=== PATIENT | female | born 1965 | race Hispanic/Latino ===

== ENCOUNTER 2021-08-06 19:15 | Inpatient (IN) | payer OTHER ==
[2021-08-06] MEDS ORDERED: VANCOMYCIN 1,500 MG in SODIUM CHLORIDE 0.9% 500 ML 500 ML IV ONE (20:08)
--- NOTE | 2021-08-06 20:45 | Emergency Department Report ---
HPI - General Chief Complaint: Extremity Injury, Lower Time Seen by Provider: 08/06/21 20:07 - HPI HPI: 55-year-old female with history of hypertension, diabetes mellitus, CKD, hypothyroidism, and history of respiratory failure secondary to Covid pneumonia currently on 2 L of supplemental oxygen by nasal cannula brought in by EMS from her nursing facility due to concern for osteomyelitis of the left heel. The patient states that she has been suffering from decubitus ulcers since she was first hospitalized months ago. She has had bilateral heel ulcers since June and the left heel was not healing as quickly as the right heel and so x-ray was performed today the facility which revealed findings concerning for osteomyelitis. She also reports that over the past few days, her blood sugars have been trending up into the 200s and 300s which is abnormal for her. Other than some mild pain at the site, she denies any other associated symptoms or complaints. She denies any fever/chills, headache, vision change, chest pain, new shortness of breath, cough, abdominal pain, nausea/vomiting, focal weakness, new sensory changes, or any other complaints. She is vaccinated against COVID- 19 but has not yet received a booster. ED Past Medical Hx - Past Medical History Previous Medical History?: Yes Hx Hypertension: Yes Hx Diabetes: Yes Hx Renal Disease: Yes Additional medical history: Respiratory failure on 2L O2 - Surgical History Past Surgical History?: Yes - Family History Family history: diabetes ED Review of Systems ROS: Stated complaint: Other details as noted in HPI Comment: All other systems reviewed and negative Constitutional: denies: chills, fever Eyes: denies: eye pain, vision change ENT: denies: throat pain, congestion Respiratory: shortness of breath (chronic). denies: cough Cardiovascular: denies: chest pain, palpitations Gastrointestinal: denies: abdominal pain, nausea, vomiting Genitourinary: denies: dysuria, frequency Musculoskeletal: denies: arthralgia, myalgia Skin: denies: rash, lesions Neurological: denies: headache, weakness Hematological/Lymphatic: denies: easy bleeding Physical Exam - Physical Exam Vital Signs: Vital Signs 08/06/21 19:38 Temperature 98.3 F Physical Exam: GENERAL: Morbidly obese female in no acute distress. HEAD: Normocephalic. No obvious signs of trauma. ENT: Slightly dry mucous membranes. EYES: Extraocular movements are intact. Pupils are equal round and reactive to light bilaterally NECK: Supple. Full ROM is intact. Trachea is midline. LUNGS: Tachypneic but not in respiratory distress. Equal chest rise bilaterally. Faint end expiratory wheezing. No rales or rhonchi appreciated. CARDIOVASCULAR: Regular rate and rhythm. No murmurs or rubs. VASCULAR: Cap refill < 2 seconds. 2+ pedal pulses bilaterally. 3+ pitting edema of the bilateral lower extremities. ABDOMEN: Abdomen is soft and nondistended. There is no significant tenderness, guarding or rebound. SKIN: Skin is warm and dry NEURO: Patient is awake, alert, and oriented. 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 No focal deficits. Normal motor and sensory exam throughout. Normal speech. MUSCULOSKELETAL: No obvious deformities. No significant tenderness. Normal ROM throughout. Decubitus ulcers noted to the bilateral heels. The left heel decubitus ulcer has a area of necrotic appearing tissue and exudate. No significant surrounding erythema or warmth. ED Course Vital Signs 08/06/21 19:38 Temperature 98.3 F ED Medical Decision Making - Lab Data Result diagrams: 08/06/21 20:19 08/06/21 20:19 Lab Results 08/06/21 08/06/21 08/06/21 Range/Units 20:19 20:19 20:19 WBC 9.3 (4.5-11.0) K/mm3 RBC 3.53 L (3.65-5.03) M/mm3 Hgb 10.0 L (10.1-14.3) gm/dl Hct 31.1 (30.3-42.9) % MCV 88 (79-97) fl MCH 28 (28-32) pg MCHC 32 (30-34) % RDW 18.6 H (13.2-15.2) % Plt Count 383 (140-440) K/mm3 Lymph % (Auto) 22.5 (13.4-35.0) % [place] % (Auto) 9.0 H (0.0-7.3) % Eos % (Auto) 6.0 H (0.0-4.3) % Baso % (Auto) 0.6 (0.0-1.8) % Lymph # (Auto) 2.1 (1.2-5.4) K/mm3 [place] # (Auto) 0.8 (0.0-0.8) K/mm3 Eos # (Auto) 0.6 H (0.0-0.4) K/mm3 Baso # (Auto) 0.1 (0.0-0.1) K/mm3 Seg Neutrophils % 61.9 (40.0-70.0) % Seg Neutrophils # 5.8 (1.8-7.7) K/mm3 ESR 58 (0-20) mm/Hr PT (12.2-14.9) Sec. INR (0.87-1.13) APTT (24.2-36.6) Sec. Sodium 137 (137-145) mmol/L Potassium 4.4 (3.6-5.0) mmol/L Chloride 100.5 (98-107) mmol/L Carbon Dioxide 24 (22-30) mmol/L Anion Gap 17 mmol/L BUN 15 (7-17) mg/dL Creatinine 1.0 (0.6-1.2) mg/dL Estimated GFR 57 ml/min BUN/Creatinine Ratio 15 % Glucose 326 H (65-100) mg/dL Lactic Acid 1.60 (0.7-2.0) mmol/L Calcium 9.2 (8.4-10.2) mg/dL Total Bilirubin 0.30 (0.1-1.2) mg/dL AST 25 (5-40) units/L ALT 23 (7-56) units/L Alkaline Phosphatase 53 (35-129) units/L Troponin T (0.00-0.029) ng/mL NT-Pro-B Natriuret Pep (0-900) pg/mL Total Protein 6.4 (6.3-8.2) g/dL Albumin 3.7 L (3.9-5) g/dL Albumin/Globulin Ratio 1.4 % Triglycerides (2-149) mg/dL Cholesterol (50-199) mg/dL LDL Cholesterol Direct (50-130) mg/dL HDL Cholesterol (40-59) mg/dL Cholesterol/HDL Ratio % HCG, Qual (Negative) 08/06/21 08/06/21 08/06/21 Range/Units 20:19 20:19 20:19 WBC (4.5-11.0) K/mm3 RBC (3.65-5.03) M/mm3 Hgb (10.1-14.3) gm/dl Hct (30.3-42.9) % MCV (79-97) fl MCH (28-32) pg MCHC (30-34) % RDW (13.2-15.2) % Plt Count (140-440) K/mm3 Lymph % (Auto) (13.4-35.0) % [place] % (Auto) (0.0-7.3) % Eos % (Auto) (0.0-4.3) % Baso % (Auto) (0.0-1.8) % Lymph # (Auto) (1.2-5.4) K/mm3 [place] # (Auto) (0.0-0.8) K/mm3 Eos # (Auto) (0.0-0.4) K/mm3 Baso # (Auto) (0.0-0.1) K/mm3 Seg Neutrophils % (40.0-70.0) % Seg Neutrophils # (1.8-7.7) K/mm3 ESR (0-20) mm/Hr PT 13.6 (12.2-14.9) Sec. INR 0.94 (0.87-1.13) APTT 28.6 (24.2-36.6) Sec. Sodium (137-145) mmol/L Potassium (3.6-5.0) mmol/L Chloride (98-107) mmol/L Carbon Dioxide (22-30) mmol/L Anion Gap mmol/L BUN (7-17) mg/dL Creatinine (0.6-1.2) mg/dL Estimated GFR ml/min BUN/Creatinine Ratio % Glucose (65-100) mg/dL Lactic Acid (0.7-2.0) mmol/L Calcium (8.4-10.2) mg/dL Total Bilirubin (0.1-1.2) mg/dL AST (5-40) units/L ALT (7-56) units/L Alkaline Phosphatase (35-129) units/L Troponin T 0.050 H (0.00-0.029) ng/mL NT-Pro-B Natriuret Pep 232.0 (0-900) pg/mL Total Protein (6.3-8.2) g/dL Albumin (3.9-5) g/dL Albumin/Globulin Ratio % Triglycerides 123 (2-149) mg/dL Cholesterol 151 (50-199) mg/dL LDL Cholesterol Direct 78 (50-130) mg/dL HDL Cholesterol 47 (40-59) mg/dL Cholesterol/HDL Ratio 3.21 % HCG, Qual Negative (Negative) - EKG Data -: EKG Interpreted by Me - EKG Data 08/07/21 00:14 Normal sinus rhythm. Normal axis. Normal intervals. No ectopy. Anterior Q waves. No significant ST segment or T wave abnormalities. - Radiology Data Radiology results: report reviewed - Medical Decision Making 55-year-old female with morbid obesity, DM 2, CKD, hypothyroidism, and history of respiratory failure on supplemental oxygen presents due to concern for osteomyelitis of the left heel. Patient has had nonhealing ulcers to the bilateral heels and x-ray today showed findings suggestive of osteomyelitis on the left. Also with several days of elevated blood sugars according to the patient. She is afebrile and with normal vital signs. Physical examination reveals bilateral decubitus ulcers of the heels but on the left there is focus of necrotic appearing tissue and exudate. 2+ pedal pulses bilaterally. We will proceed with full work-up including labs and cultures as well as plain film x- rays of the bilateral heels and feet. Given suspicion for osteomyelitis I will order broad-spectrum vancomycin and Zosyn. Labs have resulted and reveal no significant leukocytosis or anemia. Creatinine is within normal range and there are no significant electrolyte abnormalities. However, glucose is elevated at 326. Troponin is mildly positive at 0.05. BNP is negative. I suspect that the patient is dehydrated and given her hypoxia requiring supplemental oxygen I suspect that this is a type II troponin leak. We will give 1 L of IV fluids and 3 units of IV insulin with repeat Accu-Chek Bilateral plain film x-rays of the heels and feet reveal no acute abnormalities. Given the possibility of osteomyelitis, I feel that only MRI would be appropriate to rule out the diagnosis and therefore I have placed a call to general surgery At 10:15 PM I spoke with Dr. Vincent of surgery regarding the case. She agrees with holding off on CT or any other advanced imaging and recommends admission for IV antibiotics and MRI. She will provide further recommendations in the morning. Chest x-ray shows no acute abnormalities. The results of the diagnostic studies as well as the suspected diagnosis and plan of care were discussed with the patient who expressed understanding and agreement with the plan I spoke with Dr. Fontanez the on-call hospitalist regarding the case and he accepts the patient for admission and will assume care. Critical Care Time: Yes Critical care time in (mins) excluding proc time.: 40 Critical care attestation.: If time is entered above; I have spent that time in minutes in the direct care of this critically ill patient, excluding procedure time. Critical care time was spent in the evaluation/assessment, work-up, and management of osteomyelitis and hyperglycemia requiring broad-spectrum antibiotics, as well as IV insulin and repeat reassessment and reevaluation. ED Disposition Clinical Impression: Osteomyelitis of left foot, Hyperglycemia, Elevated troponin, Chronic respiratory failure Disposition: ADMITTED INPATIENT Is pt being admited?: Yes
--- NOTE | 2021-08-06 20:46 | XRay Report ---
XR chest 1V ap INDICATION / CLINICAL INFORMATION: sepsis COMPARISON: None available. FINDINGS: SUPPORT DEVICES: None. HEART / MEDIASTINUM: No significant abnormality. LUNGS / PLEURA: Lungs are clear. Costophrenic sulci are sharp. No pneumothorax. ADDITIONAL FINDINGS: No significant additional findings. IMPRESSION: 1. No acute findings. Signer Name: Osvaldo Neumann MD Signed: 08/06/2021 8:42 PM Workstation Name: [email or web address]
[2021-08-06 20:51] LABS: Basophils # (Auto) 0.1 K/mm3 (0.0-0.1); Basophils % (Auto) 0.6 % (0.0-1.8); Eosinophils # (Auto) 0.6 K/mm3 (0.0-0.4); Hematocrit 31.1 % (30.3-42.9); Lymphocytes # (Auto) 2.1 K/mm3 (1.2-5.4); Lymphocytes % (Auto) 22.5 % (13.4-35.0); Mean Corpuscular HGB Conc 32 % (30-34); Mean Corpuscular Volume 88 fl (79-97); Monocytes # (Auto) 0.8 K/mm3 (0.0-0.8); Platelet Count 383 K/mm3 (140-440); Red Blood Count 3.53 M/mm3 (3.65-5.03); Red Cell Distribution Width 18.6 % (13.2-15.2)
[2021-08-06] MEDS ORDERED: SODIUM CHLORIDE 0.9% 1000 ML 1,000 ML ONE (21:00)
[2021-08-06 21:08] LABS: INR 0.94 (0.87-1.13)
[2021-08-06 21:09] LABS: Partial Thromboplastin Time 28.6 Sec. (24.2-36.6)
[2021-08-06 21:14] LABS: Albumin 3.7 g/dL (3.9-5); Calcium 9.2 mg/dL (8.4-10.2)
--- NOTE | 2021-08-06 21:39 | XRay Report ---
XR foot BILAT 2V, XR ankle BILAT 3+V INDICATION / CLINICAL INFORMATION: assess for osteo. COMPARISON: None available. FINDINGS: No cortical lysis. No periosteal reaction. No acute fracture. Normal alignment. Joint spaces are pr eserved. Impression: 1. No radiographic evidence of osteomyelitis. Signer Name: Osvaldo Neumann MD Signed: 08/06/2021 9:35 PM Workstation Name: [id number]
[2021-08-06] MEDS ORDERED: SODIUM CHLORIDE 0.9% 500 ML 500 ML IV ONE ×2 (21:42→22:44)
[2021-08-06] MEDS ORDERED: PIPERACIL/TAZOBACTA 4.5/NS 100 4.5 GM/100 ML VIAL IV ONE (22:00)
[2021-08-06 22:02] LABS: Erythrocyte Sedimentation Rate 58 mm/Hr (0-20)
[2021-08-06] MEDS ORDERED: INSULIN REGULAR, HUMAN 100 UNITS/1 ML IV ONE (22:06)
[2021-08-06] MEDS ORDERED: VANCOMYCIN 2,000 MG in SODIUM CHLORIDE 0.9% 500 ML 500 ML IV ONE (23:00)
[2021-08-06] MEDS ORDERED: DEXTROSE 50% IN WATER (25GM) 50 ML SYRINGE IV PRN (23:25)
[2021-08-06] MEDS ORDERED: ONDANSETRON 4 MG/2 ML INJ IV PRN (23:25)
[2021-08-06] MEDS ORDERED: MORPHINE 2 MG/1 ML INJ IV PRN (23:25)
[2021-08-06] MEDS ORDERED: ACETAMINOPHEN 325 MG TAB PO PRN (23:25)
[2021-08-06] MEDS ORDERED: MAGNESIUM HYDROXIDE (MOM) ORAL LIQD UDC PO PRN (23:25)
[2021-08-06] MEDS ORDERED: MORPHINE 4 MG/1 ML INJ IV PRN (23:25)
[2021-08-06] MEDS ORDERED: DEXTROSE 10% *Hypoglycemia IV PRN (23:36)
--- NOTE | 2021-08-06 23:38 | History and Physical Report ---
History of Present Illness Date of examination: 08/06/21 Date of admission: 08/06/2021 Chief complaint: Left heel ulcer History of present illness: 55-year-old female resident of a senior care with significant past medical history of hypertension, diabetes mellitus, hypothyroidism, chronic kidney disease, history of COVID-19 pneumonia with subsequent respiratory failure on 2 L of supplemental oxygen brought in by EMS today for left heel ulcer with concerns for possible osteomyelitis. Patient is known to have bilateral heel ulcers and left heel ulcer does not seem to be healing well and subsequent x-rays done was concerning for possible osteomyelitis. Patient denies any fever or chills, no chest pain or shortness of breath, no nausea vomiting and no abdominal pain. Blood glucose has not been quite controlled lately with numbers ranging in the 200s to 300s. Work-up in the emergency room today, significant findings were that of blood glucose of 326, hemoglobin of 10 and hematocrit of 31.1. Ankle and foot x-rays reveals no radiographic evidence of osteomyelitis. Chest x-ray showed no acute findings. Patient has been commenced on empiric IV antibiotics for possible osteomyelitis. Past History Past Medical History: diabetes, hypertension, renal failure, other (Respiratory failure on 2L O2) Past Surgical History: No surgical history Social history: no significant social history Family history: diabetes Medications and Allergies Allergies Allergy/AdvReac Type Severity Reaction Status Date / Time Iodinated Contrast Media Allergy Swelling Verified 08/06/21 20:56 Active Meds: Active Medications Acetaminophen (Acetaminophen 325 Mg Tab) 650 mg PO Q4H PRN PRN Reason: Pain MILD(1-3)/Fever >100.5/MACKEY Dextrose (Dextrose 50% In Water (25gm) 50 Ml Syringe) 50 ml IV Q30MIN PRN; Protocol PRN Reason: Hypoglycemia Dextrose (Dextrose 50% In Water (25gm) 50 Ml Syringe) 50 ml IV Q30MIN PRN; Protocol PRN Reason: Hypoglycemia Vancomycin HCl 2,000 mg/ (Sodium Chloride) 540 mls @ 250 mls/hr IV ONCE ONE Stop: 08/07/21 01:09 Last Admin: 08/06/21 23:09 Dose: 250 mls/hr Sodium Chloride (Nacl 0.9% 1000 Ml) 1,000 mls @ 125 mls/hr IV DIRECT JAJA Insulin Human Lispro (Insulin Lispro 100 Unit/Ml) 0 unit SUB-Q ACHS JAJA; Protocol Magnesium Hydroxide (Magnesium Hydroxide (Mom) Oral Liqd Udc) 30 ml PO Q4H PRN PRN Reason: Constipation Morphine Sulfate (Morphine 2 Mg/1 Ml Inj) 2 mg IV Q4H PRN PRN Reason: Pain, Moderate (4-6) Morphine Sulfate (Morphine 4 Mg/1 Ml Inj) 4 mg IV Q4H PRN PRN Reason: Pain , Severe (7-10) Ondansetron HCl (Ondansetron 4 Mg/2 Ml Inj) 4 mg IV Q8H PRN PRN Reason: Nausea And Vomiting Sodium Chloride (Sodium Chloride 0.9% 10 Ml Flush Syringe) 10 ml IV BID JAJA Sodium Chloride (Sodium Chloride 0.9% 10 Ml Flush Syringe) 10 ml IV PRN PRN PRN Reason: LINE FLUSH Review of Systems Constitutional: no fever, no chills Ears, nose, mouth and throat: no nasal congestion, no sore throat Cardiovascular: no chest pain, no palpitations Respiratory: no cough, no shortness of breath Gastrointestinal: no abdominal pain, no nausea, no vomiting, no diarrhea Genitourinary Female: no pelvic pain, no flank pain, no dysuria, no hematuria Musculoskeletal: no neck pain, no low back pain Integumentary: no rash, no pruritis Neurological: no headaches, no confusion Psychiatric: no anxiety, no depression Endocrine: no polyphagia, no polydipsia, no polyuria, no nocturia Exam - Constitutional Vitals: Temp Pulse Resp BP Pulse Ox 98.3 F 78 24 148/72 99 08/06/21 19:38 08/06/21 20:58 08/06/21 20:58 08/06/21 20:58 08/06/21 20:58 General appearance: Present: no acute distress, well-nourished, obese - EENT Eyes: Present: PERRL, EOM intact. Absent: scleral icterus ENT: hearing intact, clear oral mucosa, dentition normal - Neck Neck: Present: supple, normal ROM - Respiratory Respiratory effort: normal Respiratory: bilateral: CTA - Cardiovascular Rhythm: regular Heart Sounds: Present: S1 & S2. Absent: gallop, systolic murmur, diastolic murmur, rub, click - Extremities Extremities: no ischemia, pulses intact, pulses symmetrical, No edema, normal temperature, normal color, Full ROM Peripheral Pulses: within normal limits - Abdominal General gastrointestinal: Present: soft, non-tender, non-distended. Absent: mass - Integumentary Integumentary: Present: clear, warm, dry, normal turgor. Absent: rash - Musculoskeletal Musculoskeletal: strength equal bilaterally - Psychiatric Psychiatric: appropriate mood/affect, intact judgment & insight, memory intact, cooperative - Neurologic Neurologic: CNII-XII intact, no focal deficits, moves all extremities - Additional findings Additional findings: Skin: Bilateral heel ulcers. Dressing on heel ulcers. Redness over skin of lower 1/3 of lower extremities. HEART Score - HEART Score Troponin: Troponin T 0.050 ng/mL (0.00-0.029) H 08/06/21 20:19 Results - Labs CBC & Chem 7: 08/06/21 20:19 08/06/21 20:19 Labs: Abnormal lab results 08/06/21 08/06/21 08/06/21 Range/Units 20:19 20:19 20:19 RBC 3.53 L (3.65-5.03) M/mm3 Hgb 10.0 L (10.1-14.3) gm/dl RDW 18.6 H (13.2-15.2) % [place] % (Auto) 9.0 H (0.0-7.3) % Eos % (Auto) 6.0 H (0.0-4.3) % Eos # (Auto) 0.6 H (0.0-0.4) K/mm3 Glucose 326 H (65-100) mg/dL Troponin T 0.050 H (0.00-0.029) ng/mL Albumin 3.7 L (3.9-5) g/dL Assessment and Plan - Patient Problems (1) Osteomyelitis of left foot Current Visit: Yes Status: Acute Plan to address problem: No radiographic evidence of osteomyelitis on x-rays. Meanwhile patient has been commenced on empiric IV antibiotics. May consider MRI of the lower extremities to rule out osteomyelitis. General surgeon Dr. Vincent has been consulted for evaluation and recomme ndations. (2) Chronic respiratory failure Current Visit: Yes Status: Acute Plan to address problem: Patient had a recent coving 19 pneumonia with respiratory failure. Currently on supplemental oxygen. We will keep O2 saturation greater or equal to 92%. (3) Elevated troponin Current Visit: Yes Status: Acute Plan to address problem: Possibly troponin leak. Patient denies any chest pain. (4) Hyperglycemia Current Visit: Yes Status: Acute Plan to address problem: Patient placed on sliding scale insulin. We will monitor Accu-Cheks closely. (5) Morbid obesity with BMI of 50.0-59.9, adult Current Visit: Yes Status: Acute Plan to address problem: Dietary consult requested. Lifestyle modification encouraged. (6) DVT prophylaxis Current Visit: Yes Status: Acute Plan to address problem: Patient placed on subcutaneous heparin. (7) Full code status Current Visit: Yes Status: Acute Plan to address problem: Patient is full code.
[2021-08-06] MEDS ORDERED: VANCOMYCIN PHARMACY TO DOSE IV SCH (23:45)
[2021-08-06 23:49] LABS: Chol/HDL Ratio 3.21 %
[2021-08-07 02:46] LABS: Bacteria,Urine 1+ /HPF (Negative); Bilirubin,Urine NEG (Negative); Blood,Urine NEG (Negative); Color,Urine Yellow (Yellow); Protein,Urine <15 mg/dL mg/dL (Negative); Urobilinogen,Urine < 2.0 mg/dL (<2.0)
[2021-08-07 05:10] LABS: Hematocrit 30.2 % (30.3-42.9); Hemoglobin 9.3 gm/dl (10.1-14.3); Mean Corpuscular HGB Conc 31 % (30-34); Mean Corpuscular Volume 88 fl (79-97); Red Blood Count 3.44 M/mm3 (3.65-5.03); Red Cell Distribution Width 18.7 % (13.2-15.2)
[2021-08-07 05:11] LABS: Platelet Count 351 K/mm3 (140-440)
[2021-08-07 05:31] LABS: BUN/Creatinine Ratio 16; Blood Urea Nitrogen 14 mg/dL (7-17); Calcium 8.7 mg/dL (8.4-10.2); Hemolysis Index 4
[2021-08-07 05:44] LABS: Band Neutrophils # (Manual) 0.3 K/mm3; Basophils % (Manual) 0 % (0.0-1.8); Hypochromasia 1+; Platelet Estimate Consistent w Auto; Total Cells Counted 100
[2021-08-07] MEDS ORDERED: PIPERACIL/TAZOBACTA 4.5/NS 100 4.5 GM/100 ML VIAL IV SCH (06:00)
[2021-08-07] MEDS: HEPARIN 5,000 UNIT/1 ML VIAL SUB-Q SCH ×3 (06:13→21:45)
[2021-08-07] MEDS: INSULIN LISPRO 100 UNIT/ML SUB-Q SCH ×4 (09:09→22:13)
--- NOTE | 2021-08-07 11:54 | Progress Note ---
Assessment and Plan - Patient Problems (1) Osteomyelitis of left foot Current Visit: Yes Status: Acute Plan to address problem: IV Unasyn and vancomycin MRI of the left foot pending (2) Chronic respiratory failure Current Visit: Yes Status: Acute Plan to address problem: Patient had a recent coving 19 pneumonia with respiratory failure. Currently on supplemental oxygen. We will keep O2 saturation greater or equal to 92%. (3) Elevated troponin Current Visit: Yes Status: Acute Plan to address problem: Possibly troponin leak. Patient denies any chest pain. (4) Hyperglycemia Current Visit: Yes Status: Acute Plan to address problem: Insulin adjusted (5) Morbid obesity with BMI of 50.0-59.9, adult Current Visit: Yes Status: Acute Plan to address problem: Dietary consult requested. Lifestyle modification encouraged. (6) DVT prophylaxis Current Visit: Yes Status: Acute Plan to address problem: Patient placed on subcutaneous heparin. (7) Full code status Current Visit: Yes Status: Acute Plan to address problem: Patient is full code. Subjective Date of service: 08/07/21 Principal diagnosis: Left heel osteomyelitis Interval history: 55-year-old female resident of a skilled nursing with significant past medical history of hypertension, diabetes mellitus, hypothyroidism, chronic kidney disease, history of COVID-19 pneumonia with subsequent respiratory failure on 2 L of supplemental oxygen brought in by EMS today for left heel ulcer with concerns for possible osteomyelitis. Patient is known to have bilateral heel ulcers and left heel ulcer does not seem to be healing well and subsequent x-rays done was concerning for possible osteomyelitis. Patient denies any fever or chills, no chest pain or shortness of breath, no nausea vomiting and no abdominal pain. Blood glucose has not been quite controlled lately with numbers ranging in the 200s to 300s. Work-up in the emergency room today, significant findings were that of blood glucose of 326, hemoglobin of 10 and hematocrit of 31.1. Ankle and foot x-rays reveals no radiographic evidence of osteomyelitis. Chest x-ray showed no acute findings. Patient has been commenced on empiric IV antibiotics for possible osteomyelitis. August 07, 2021 Continue IV antibiotics MRI pending Objective - Constitutional Vitals: Vital Signs - 12hr 08/07/21 08/07/21 08/07/21 00:01 00:15 00:31 Pulse Rate 64 67 69 Respiratory 23 24 12 Rate Blood Pressure 130/62 134/41 136/34 O2 Sat by Pulse 99 99 100 Oximetry 08/07/21 08/07/21 08/07/21 00:41 00:51 01:01 Pulse Rate 68 59 L 64 Respiratory 24 21 20 Rate Blood Pressure 136/34 138/47 126/39 O2 Sat by Pulse 99 100 100 Oximetry 08/07/21 08/07/21 08/07/21 01:11 01:21 01:31 Pulse Rate 72 69 60 Respiratory 22 21 21 Rate Blood Pressure 126/39 126/39 126/39 O2 Sat by Pulse 100 100 100 Oximetry 08/07/21 08/07/21 08/07/21 01:41 01:51 01:59 Pulse Rate 72 71 Respiratory 27 H 24 20 Rate Blood Pressure 126/39 126/39 O2 Sat by Pulse 99 100 98 Oximetry 08/07/21 08/07/21 08/07/21 02:01 02:11 02:21 Pulse Rate 63 64 74 Respiratory 19 20 21 Rate Blood Pressure 106/29 106/29 106/29 O2 Sat by Pulse 100 100 100 Oximetry 08/07/21 08/07/21 08/07/21 02:30 04:53 05:01 Pulse Rate Respiratory Rate Blood Pressure 106/29 139/71 135/72 O2 Sat by Pulse 99 71 L 100 Oximetry 08/07/21 08/07/21 08/07/21 05:11 05:21 06:53 Pulse Rate Respiratory Rate Blood Pressure 135/72 135/72 O2 Sat by Pulse 98 99 98 Oximetry 08/07/21 07:01 Pulse Rate Respiratory Rate Blood Pressure O2 Sat by Pulse 98 Oximetry General appearance: Present: no acute distress, well-nourished - EENT Eyes: PERRL, EOM intact ENT: hearing intact, clear oral mucosa Ears: bilateral: normal - Neck Neck: supple, normal ROM - Respiratory Respiratory effort: normal Respiratory: bilateral: CTA - Breasts Breasts: normal - Cardiovascular Heart rate: 78 Rhythm: regular Heart Sounds: Present: S1 & S2. Absent: gallop, rub Extremities: pulses intact, No edema, normal color, Full ROM, abnormal (Left heel ulcer) Extremity abnormal: other - Gastrointestinal General gastrointestinal: Present: soft, non-tender, non-distended, normal bowel sounds - Genitourinary Female genitourinary: normal - Integumentary Integumentary: clear, warm, dry - Musculoskeletal Musculoskeletal: 1, strength equal bilaterally - Neurologic Neurologic: moves all extremities - Psychiatric Psychiatric: memory intact, appropriate mood/affect, intact judgment & insight - Labs CBC & Chem 7: 08/07/21 04:25 08/07/21 04:25 Labs: Abnormal lab results 08/06/21 08/06/21 08/06/21 Range/Units 20:19 20:19 20:19 WBC (4.5-11.0) K/mm3 RBC 3.53 L (3.65-5.03) M/mm3 Hgb 10.0 L (10.1-14.3) gm/dl Hct (30.3-42.9) % MCH (28-32) pg RDW 18.6 H (13.2-15.2) % [place] % (Auto) 9.0 H (0.0-7.3) % Eos % (Auto) 6.0 H (0.0-4.3) % Eos # (Auto) 0.6 H (0.0-0.4) K/mm3 Eosinophils % (Manual) (0.0-4.3) % Eosinophils # (Manual) (0.0-0.4) K/mm3 Glucose 326 H (65-100) mg/dL POC Glucose (70-105) mg/dL Troponin T 0.050 H (0.00-0.029) ng/mL Albumin 3.7 L (3.9-5) g/dL 08/07/21 08/07/21 08/07/21 Range/Units 00:57 04:25 04:25 WBC 11.1 H (4.5-11.0) K/mm3 RBC 3.44 L (3.65-5.03) M/mm3 Hgb 9.3 L (10.1-14.3) gm/dl Hct 30.2 L (30.3-42.9) % MCH 27 L (28-32) pg RDW 18.7 H (13.2-15.2) % [place] % (Auto) (0.0-7.3) % Eos % (Auto) (0.0-4.3) % Eos # (Auto) (0.0-0.4) K/mm3 Eosinophils % (Manual) 7.0 H (0.0-4.3) % Eosinophils # (Manual) 0.8 H (0.0-0.4) K/mm3 Glucose 207 H (65-100) mg/dL POC Glucose 247 H (70-105) mg/dL Troponin T (0.00-0.029) ng/mL Albumin (3.9-5) g/dL 08/07/21 Range/Units 11:15 WBC (4.5-11.0) K/mm3 RBC (3.65-5.03) M/mm3 Hgb (10.1-14.3) gm/dl Hct (30.3-42.9) % MCH (28-32) pg RDW (13.2-15.2) % [place] % (Auto) (0.0-7.3) % Eos % (Auto) (0.0-4.3) % Eos # (Auto) (0.0-0.4) K/mm3 Eosinophils % (Manual) (0.0-4.3) % Eosinophils # (Manual) (0.0-0.4) K/mm3 Glucose (65-100) mg/dL POC Glucose 202 H (70-105) mg/dL Troponin T (0.00-0.029) ng/mL Albumin (3.9-5) g/dL HEART Score - HEART Score Troponin: Troponin T 0.050 ng/mL (0.00-0.029) H 08/06/21 20:19
[2021-08-07] MEDS: VANCOMYCIN 2,000 MG in SODIUM CHLORIDE 0.9% 500 ML 500 ML IV SCH ×2 (13:07→21:45)
[2021-08-07] MEDS ORDERED: CEFEPIME/NS 2 GM/100 ML 2 GM/100 ML BAG IV SCH (14:00)
--- NOTE | 2021-08-07 16:10 | Consultation ---
History of Present Illness Consult date: 08/07/21 Chief complaint: wounds - History of present illness History of present illness: 55 yo F with morbid obesity, HTN, DM, CKD who presents to ER from [place] for possible osteomyelitis of left heel. Patient was hispitalized with covid a few months ago and developed decubitus ulcers. An outpatient xray of the left heel was performed which showed possible osteo. No f/c, cp, sob, n/v, abd pain. Elevated blood sugars. Past History Past Medical History: diabetes, hypertension, renal failure, other (Respiratory failure on 2L O2) Past Surgical History: No surgical history Social history: no significant social history Family history: diabetes Medications and Allergies Allergies Allergy/AdvReac Type Severity Reaction Status Date / Time Iodinated Contrast Media Allergy Swelling Verified 08/06/21 20:56 Active Meds: Active Medications Acetaminophen (Acetaminophen 325 Mg Tab) 650 mg PO Q4H PRN PRN Reason: Pain MILD(1-3)/Fever >100.5/MACKEY Dextrose (Dextrose 10% *Hypoglycemia) 0 ml IV DIRECT PRN; Protocol PRN Reason: Hypoglycemia Heparin Sodium (Porcine) (Heparin 5,000 Unit/1 Ml Vial) 5,000 unit SUB-Q Q8HR JAJA Last Admin: 08/07/21 06:13 Dose: 5,000 unit Sodium Chloride (Nacl 0.9% 1000 Ml) 1,000 mls @ 125 mls/hr IV DIRECT JAJA Vancomycin HCl 2,000 mg/ (Sodium Chloride) 540 mls @ 250 mls/hr IV Q12H JAJA Last Admin: 08/07/21 13:07 Dose: 250 mls/hr Insulin Human Lispro (Insulin Lispro 100 Unit/Ml) 0 unit SUB-Q ACHS JAJA; Pr otocol Last Admin: 08/07/21 13:07 Dose: 4 unit Magnesium Hydroxide (Magnesium Hydroxide (Mom) Oral Liqd Udc) 30 ml PO Q4H PRN PRN Reason: Constipation Morphine Sulfate (Morphine 2 Mg/1 Ml Inj) 2 mg IV Q4H PRN PRN Reason: Pain, Moderate (4-6) Morphine Sulfate (Morphine 4 Mg/1 Ml Inj) 4 mg IV Q4H PRN PRN Reason: Pain , Severe (7-10) Ondansetron HCl (Ondansetron 4 Mg/2 Ml Inj) 4 mg IV Q8H PRN PRN Reason: Nausea And Vomiting Sodium Chloride (Sodium Chloride 0.9% 10 Ml Flush Syringe) 10 ml IV BID JAJA Last Admin: 08/07/21 13:08 Dose: 10 ml Sodium Chloride (Sodium Chloride 0.9% 10 Ml Flush Syringe) 10 ml IV PRN PRN PRN Reason: LINE FLUSH Review of Systems All systems: negative (10 pt ros performed and negative except for that listed in HPI) Exam Vital Signs Temp 98.3 F 08/06/21 19:38 Narrative exam: Gen; Sleeping soundly. No apparent distress ENT: no LAD CV: S1, S2+ Resp; even and unlabored Ext: wounds wrapped, dressings c/d/i Wound photos reviewed: Ext: L heel with necrotic skin present over small portion of wound. No erythema. Remainder of wound with pink granulation tissue. R heel with dry skin without open wound Sacrum: Small clean wound with red granulation tissue without erythema, drainage. Results - Labs 08/07/21 04:25 08/07/21 04:25 Abnormal lab results 08/06/21 08/06/21 08/06/21 Range/Units 20:19 20:19 20:19 WBC (4.5-11.0) K/mm3 RBC 3.53 L (3.65-5.03) M/mm3 Hgb 10.0 L (10.1-14.3) gm/dl Hct (30.3-42.9) % MCH (28-32) pg RDW 18.6 H (13.2-15.2) % [place] % (Auto) 9.0 H (0.0-7.3) % Eos % (Auto) 6.0 H (0.0-4.3) % Eos # (Auto) 0.6 H (0.0-0.4) K/mm3 Eosinophils % (Manual) (0.0-4.3) % Eosinophils # (Manual) (0.0-0.4) K/mm3 Glucose 326 H (65-100) mg/dL POC Glucose (70-105) mg/dL Troponin T 0.050 H (0.00-0.029) ng/mL Albumin 3.7 L (3.9-5) g/dL 08/07/21 08/07/21 08/07/21 Range/Units 00:57 04:25 04:25 WBC 11.1 H (4.5-11.0) K/mm3 RBC 3.44 L (3.65-5.03) M/mm3 Hgb 9.3 L (10.1-14.3) gm/dl Hct 30.2 L (30.3-42.9) % MCH 27 L (28-32) pg RDW 18.7 H (13.2-15.2) % [place] % (Auto) (0.0-7.3) % Eos % (Auto) (0.0-4.3) % Eos # (Auto) (0.0-0.4) K/mm3 Eosinophils % (Manual) 7.0 H (0.0-4.3) % Eosinophils # (Manual) 0.8 H (0.0-0.4) K/mm3 Glucose 207 H (65-100) mg/dL POC Glucose 247 H (70-105) mg/dL Troponin T (0.00-0.029) ng/mL Albumin (3.9-5) g/dL 08/07/21 Range/Units 11:15 WBC (4.5-11.0) K/mm3 RBC (3.65-5.03) M/mm3 Hgb (10.1-14.3) gm/dl Hct (30.3-42.9) % MCH (28-32) pg RDW (13.2-15.2) % [place] % (Auto) (0.0-7.3) % Eos % (Auto) (0.0-4.3) % Eos # (Auto) (0.0-0.4) K/mm3 Eosinophils % (Manual) (0.0-4.3) % Eosinophils # (Manual) (0.0-0.4) K/mm3 Glucose (65-100) mg/dL POC Glucose 202 H (70-105) mg/dL Troponin T (0.00-0.029) ng/mL Albumin (3.9-5) g/dL Diabetes panel 08/06/21 08/06/21 08/07/21 Range/Units 20:19 20:19 04:25 Sodium 137 139 (137-145) mmol/L Potassium 4.4 4.2 (3.6-5.0) mmol/L Chloride 100.5 104.0 (98-107) mmol/L Carbon Dioxide 24 23 (22-30) mmol/L BUN 15 14 (7-17) mg/dL Creatinine 1.0 0.9 (0.6-1.2) mg/dL Glucose 326 H 207 H (65-100) mg/dL Calcium 9.2 8.7 (8.4-10.2) mg/dL AST 25 (5-40) units/L ALT 23 (7-56) units/L Alkaline Phosphatase 53 (35-129) units/L Total Protein 6.4 (6.3-8.2) g/dL Albumin 3.7 L (3.9-5) g/dL Triglycerides 123 (2-149) mg/dL HDL Cholesterol 47 (40-59) mg/dL Calcium panel 08/06/21 08/07/21 Range/Units 20:19 04:25 Calcium 9.2 8.7 (8.4-10.2) mg/dL Albumin 3.7 L (3.9-5) g/dL Pituitary panel 08/06/21 08/07/21 Range/Units 20:19 04:25 Sodium 137 139 (137-145) mmol/L Potassium 4.4 4.2 (3.6-5.0) mmol/L Chloride 100.5 104.0 (98-107) mmol/L Carbon Dioxide 24 23 (22-30) mmol/L BUN 15 14 (7-17) mg/dL Creatinine 1.0 0.9 (0.6-1.2) mg/dL Glucose 326 H 207 H (65-100) mg/dL Calcium 9.2 8.7 (8.4-10.2) mg/dL Adrenal panel 08/06/21 08/07/21 Range/Units 20:19 04:25 Sodium 137 139 (137-145) mmol/L Potassium 4.4 4.2 (3.6-5.0) mmol/L Chloride 100.5 104.0 (98-107) mmol/L Carbon Dioxide 24 23 (22-30) mmol/L BUN 15 14 (7-17) mg/dL Creatinine 1.0 0.9 (0.6-1.2) mg/dL Glucose 326 H 207 H (65-100) mg/dL Calcium 9.2 8.7 (8.4-10.2) mg/dL Total Bilirubin 0.30 (0.1-1.2) mg/dL AST 25 (5-40) units/L ALT 23 (7-56) units/L Alkaline Phosphatase 53 (35-129) units/L Total Protein 6.4 (6.3-8.2) g/dL Albumin 3.7 L (3.9-5) g/dL - Imaging Additional studies: xray L foot Assessment and Plan 55 yo F with left heel wound, r/o osteomyelitis Plan: 1. MRI L heel pending - further recs pending results 2. empiric abx started 3. wound care - orders placed 4. offloading 5. optimize nutrition 6. HbA1C ordered 7. strict glucose control Thank you, please call with questions.
[2021-08-08] MEDS: HEPARIN 5,000 UNIT/1 ML VIAL SUB-Q SCH ×3 (06:25→21:42)
[2021-08-08] MEDS: INSULIN LISPRO 100 UNIT/ML SUB-Q SCH ×4 (08:33→22:31)
[2021-08-08] MEDS: AMPICILLIN/SULBACTA 3GM/100ML 3 GM/100 ML BAG IV SCH ×3 (10:00→21:38)
[2021-08-08] MEDS: VANCOMYCIN 2,000 MG in SODIUM CHLORIDE 0.9% 500 ML 500 ML IV SCH (12:09)
--- NOTE | 2021-08-08 14:28 | Electrocardiograph Report ---
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
--- NOTE | 2021-08-08 14:55 | Progress Note ---
Assessment and Plan - Patient Problems (1) Osteomyelitis of left foot Current Visit: Yes Status: Acute Plan to address problem: IV Unasyn and vancomycin MRI of the left foot pending (2) Chronic respiratory failure Current Visit: Yes Status: Acute Plan to address problem: Patient had a recent coving 19 pneumonia with respiratory failure. Currently on supplemental oxygen. We will keep O2 saturation greater or equal to 92%. (3) Elevated troponin Current Visit: Yes Status: Acute Plan to address problem: Possibly troponin leak. Patient denies any chest pain. (4) Hyperglycemia Current Visit: Yes Status: Acute Plan to address problem: Insulin adjusted (5) Morbid obesity with BMI of 50.0-59.9, adult Current Visit: Yes Status: Acute Plan to address problem: Dietary consult requested. Lifestyle modification encouraged. (6) DVT prophylaxis Current Visit: Yes Status: Acute Plan to address problem: Patient placed on subcutaneous heparin. (7) Full code status Current Visit: Yes Status: Acute Plan to address problem: Patient is full code. Subjective Date of service: 08/08/21 Principal diagnosis: Left heel osteomyelitis Interval history: 55-year-old female resident of a assisted with significant past medical history of hypertension, diabetes mellitus, hypothyroidism, chronic kidney disease, history of COVID-19 pneumonia with subsequent respiratory failure on 2 L of supplemental oxygen brought in by EMS today for left heel ulcer with concerns for possible osteomyelitis. Patient is known to have bilateral heel ulcers and left heel ulcer does not seem to be healing well and subsequent x-rays done was concerning for possible osteomyelitis. Patient denies any fever or chills, no chest pain or shortness of breath, no nausea vomiting and no abdominal pain. Blood glucose has not been quite controlled lately with numbers ranging in the 200s to 300s. Work-up in the emergency room today, significant findings were that of blood glucose of 326, hemoglobin of 10 and hematocrit of 31.1. Ankle and foot x-rays reveals no radiographic evidence of osteomyelitis. Chest x-ray showed no acute findings. Patient has been commenced on empiric IV antibiotics for possible osteomyelitis. August 07, 2021 Continue IV antibiotics MRI pending August 08, 2021 Patient is alert and oriented Lying in bed comfortably and looking at her phone Continue IV antibiotics MRI of the left foot pending Objective - Constitutional Vitals: Vital Signs - 12hr 08/08/21 08/08/21 05:53 11:23 Temperature 97.8 F 98.4 F Pulse Rate 70 68 Respiratory 20 24 Rate Blood Pressure 157/45 154/56 O2 Sat by Pulse 97 94 Oximetry General appearance: Present: no acute distress, well-nourished - EENT Eyes: PERRL, EOM intact ENT: hearing intact, clear oral mucosa Ears: bilateral: normal - Neck Neck: supple, normal ROM - Respiratory Respiratory effort: normal Respiratory: bilateral: CTA - Breasts Breasts: normal - Cardiovascular Heart rate: 78 Rhythm: regular Heart Sounds: Present: S1 & S2. Absent: gallop, rub Extremities: no ischemia, pulses intact, No edema, normal color, Full ROM, abnormal (Left heel ulcer) Extremity abnormal: other (Left heel ulcer) - Gastrointestinal General gastrointestinal: Present: soft, non-tender, non-distended, normal bowel sounds - Genitourinary Female genitourinary: normal - Integumentary Integumentary: clear, warm, dry - Musculoskeletal Musculoskeletal: 1, strength equal bilaterally - Neurologic Neurologic: moves all extremities - Psychiatric Psychiatric: memory intact, appropriate mood/affect, intact judgment & insight - Labs CBC & Chem 7: 08/07/21 04:25 08/07/21 04:25 Labs: Abnormal lab results 08/07/21 08/07/21 08/08/21 Range/Units 16:39 22:05 04:45 POC Glucose 167 H 247 H (70-105) mg/dL Hemoglobin A1c 6.3 H (4-6) % Vancomycin Trough (5.0-20.0) ug/mL 08/08/21 08/08/21 Range/Units 09:29 11:21 POC Glucose 204 H (70-105) mg/dL Hemoglobin A1c (4-6) % Vancomycin Trough 35.7 H (5.0-20.0) ug/mL HEART Score - HEART Score Troponin: Troponin T 0.050 ng/mL (0.00-0.029) H 08/06/21 20:19
[2021-08-09] MEDS: AMPICILLIN/SULBACTA 3GM/100ML 3 GM/100 ML BAG IV SCH ×3 (04:26→18:00)
[2021-08-09] MEDS: HEPARIN 5,000 UNIT/1 ML VIAL SUB-Q SCH ×3 (05:47→22:18)
[2021-08-09 05:59] LABS: Basophils # (Auto) 0.1 K/mm3 (0.0-0.1); Eosinophils # (Auto) 0.6 K/mm3 (0.0-0.4); Eosinophils % (Auto) 7.7 % (0.0-4.3); Hematocrit 30.8 % (30.3-42.9); Hemoglobin 9.9 gm/dl (10.1-14.3); Lymphocytes % (Auto) 25.3 % (13.4-35.0); Mean Corpuscular HGB Conc 32 % (30-34); Mean Corpuscular Volume 89 fl (79-97); Monocytes # (Auto) 0.8 K/mm3 (0.0-0.8); Monocytes % (Auto) 9.4 % (0.0-7.3); Platelet Count 397 K/mm3 (140-440); Red Blood Count 3.46 M/mm3 (3.65-5.03); Red Cell Distribution Width 17.9 % (13.2-15.2)
[2021-08-09 06:25] LABS: BUN/Creatinine Ratio 16; Blood Urea Nitrogen 14 mg/dL (7-17); Calcium 9.4 mg/dL (8.4-10.2); Hemolysis Index 1
[2021-08-09] MEDS: INSULIN LISPRO 100 UNIT/ML SUB-Q SCH ×4 (08:30→22:16)
--- NOTE | 2021-08-09 12:40 | Magnetic Resonance Report ---
MRI LEFT FOOT WITHOUT CONTRAST INDICATION / CLINICAL INFORMATION: osteomyelitis left foot, HEEL PAIN. TECHNIQUE: Multiplanar, multisequence MR images were obtained. COMPARISON: Radiographs dated 08/06/2021 FINDINGS: BONES: No significant bone marrow edema. No fracture. No osseous lesion. JOINTS: No significant arthritis. No significant joint effusion or synovitis. MUSCLES: Mild intramuscular edema in the flexor muscles of the foot. FLEXOR TENDONS: No significant abnormality. EXTENSOR TENDONS: No significant abnormality. PERONEAL TENDONS: No significant abnormality. LIGAMENTS: No significant abnormality. SOFT TISSUES: Dorsal subcutaneous edema. Superficial soft tissue ulcer posterior heel with mild subcu taneous edema. No extension to the bone. ADDITIONAL FINDINGS: Severe tendinosis of distal Achilles tendon with degenerative enthesopathy. Thic kening of plantar fascia with degenerative enthesopathy. Complete fatty atrophy of abductor digiti mi nimi/quinti. IMPRESSION: 1. No MR evidence of osteomyelitis. Superficial soft tissue ulcer at posterior heel with subcutaneous edema but no connection to the bone. 2. Achilles tendinosis. 3. Quinn's neuropathy Report dictated by: Jarad Fitzgerald MD Report dictated on: 08/09/2021 10:53 AM I have reviewed the images, agree with this report, and edited this report as needed. Signer Name: Luis King MD Signed: 08/09/2021 12:36 PM Workstation Name: [id number]
--- NOTE | 2021-08-09 12:58 | Progress Note ---
Assessment and Plan 55 yo F with left heel wound, r/o osteomyelitis MRI left heel - superficial ulcer. No osteo Plan: 1. daily wound care - orders placed 2. offloading 3. optimize nutrition 4. strict glucose control 5. May be discharged from surgical standpoint. No acute intervention. Patient states she has wound care visits 3 x per week. Thank you, please call with questions. Subjective Date of service: 08/09/21 Narrative: Pt seen and examined. No complaints. Objective Vital Signs - 12hr 08/09/21 08/09/21 01:00 04:37 Temperature 97.6 F Pulse Rate 66 Respiratory 18 Rate Blood Pressure 148/63 O2 Sat by Pulse 96 98 Oximetry - General physical appearance Narrative Exam: Gen.: Awake, alert, oriented x3. No apparent distress ENT: Trachea midline. No lymphadenopathy. No scleral icterus or conjunctival pallor CV: S1, S2 present Respiratory: No audible wheezes Extremities: No clubbing, cyanosis, edema. L heel wound with necrotic tissue hanging from wound bed, easily removed. Wound bed is pink with granulation tissue present. Alginate applied to wound bed and covered with foam dressing. - Labs 08/09/21 04:58 08/09/21 04:58 Diabetes panel 08/09/21 Range/Units 04:58 Sodium 140 (137-145) mmol/L Potassium 4.1 (3.6-5.0) mmol/L Chloride 103.2 (98-107) mmol/L Carbon Dioxide 26 (22-30) mmol/L BUN 14 (7-17) mg/dL Creatinine 0.9 (0.6-1.2) mg/dL Glucose 155 H (65-100) mg/dL Calcium 9.4 (8.4-10.2) mg/dL Calcium panel 08/09/21 Range/Units 04:58 Calcium 9.4 (8.4-10.2) mg/dL Pituitary panel 08/09/21 Range/Units 04:58 Sodium 140 (137-145) mmol/L Potassium 4.1 (3.6-5.0) mmol/L Chloride 103.2 (98-107) mmol/L Carbon Dioxide 26 (22-30) mmol/L BUN 14 (7-17) mg/dL Creatinine 0.9 (0.6-1.2) mg/dL Glucose 155 H (65-100) mg/dL Calcium 9.4 (8.4-10.2) mg/dL Adrenal panel 08/09/21 Range/Units 04:58 Sodium 140 (137-145) mmol/L Potassium 4.1 (3.6-5.0) mmol/L Chloride 103.2 (98-107) mmol/L Carbon Dioxide 26 (22-30) mmol/L BUN 14 (7-17) mg/dL Creatinine 0.9 (0.6-1.2) mg/dL Glucose 155 H (65-100) mg/dL Calcium 9.4 (8.4-10.2) mg/dL
[2021-08-09] MEDS: VANCOMYCIN 2,000 MG in SODIUM CHLORIDE 0.9% 500 ML 500 ML IV SCH (14:11)
--- NOTE | 2021-08-09 18:27 | Progress Note ---
Assessment and Plan Assessment and plan: -- Osteomyelitis of left foot Current Visit: Yes Status: Acute Plan to address problem: IV Unasyn and vancomycin MRI of the left foot pending -- Chronic respiratory failure Current Visit: Yes Status: Acute Plan to address problem: Patient had a recent coving 19 pneumonia with respiratory failure. Currently on supplemental oxygen. We will keep O2 saturation greater or equal to 92%. -- Elevated troponin Current Visit: Yes Status: Acute Plan to address problem: Possibly troponin leak. Patient denies any chest pain. -- Hyperglycemia Current Visit: Yes Status: Acute Plan to address problem: Insulin adjusted -- Morbid obesity with BMI of 50.0-59.9, adult Current Visit: Yes Status: Acute Plan to address problem: Dietary consult requested. Lifestyle modification encouraged. -- DVT prophylaxis Current Visit: Yes Status: Acute Plan to address problem: Patient placed on subcutaneous heparin. -- Full code status Current Visit: Yes Status: Acute Plan to address problem: Patient is full code. Subjective Date of service: 08/08/21 Principal diagnosis: Left heel osteomyelitis Interval history: 55-year-old female resident of a skilled nursing with significant past medical history of hypertension, diabetes mellitus, hypothyroidism, chronic kidney disease, history of COVID-19 pneumonia with subsequent respiratory failure on 2 L of supplemental oxygen brought in by EMS today for left heel ulcer with concerns for possible osteomyelitis. Patient is known to have bilateral heel ulcers and left heel ulcer does not seem to be healing well and subsequent x-rays done was concerning for possible osteomyelitis. Patient denies any fever or chills, no chest pain or shortness of breath, no nausea vomiting and no abdominal pain. Blood glucose has not been quite controlled lately with numbers ranging in the 200s to 300s. Work-up in the emergency room today, significant findings were that of blood glucose of 326, hemoglobin of 10 and hematocrit of 31.1. Ankle and foot x-rays reveals no radiographic evidence of osteomyelitis. Chest x-ray showed no acute findings. Patient has been commenced on empiric IV antibiotics for possible osteomyelitis. August 07, 2021 Continue IV antibiotics MRI pending August 08, 2021 Patient is alert and oriented Lying in bed comfortably and looking at her phone Continue IV antibiotics MRI of the left foot pending 08/09/21; follow MRI left lower extremity to rule out osteomyelitis Follow consultants and recommendations Continue wound care, antibiotics and supportive care History Interval history: I have seen and examined the patient at the bedside Patient's chart and medications reviewed Patient has multiple wounds on the left heel possible osteomyelitis Scheduled for MRI of the left lower extremity Hospitalist Physical - Constitutional Vitals: Temp Pulse Resp BP Pulse Ox 97.8 F 75 18 171/63 96 08/09/21 16:48 08/09/21 16:48 08/09/21 16:48 08/09/21 16:48 08/09/21 16:48 General appearance: Present: no acute distress, well-nourished, obese (Morbidly obese) - EENT Eyes: Present: PERRL, EOM intact - Neck Neck: Present: supple, normal ROM - Respiratory Respiratory effort: normal Respiratory: bilateral: diminished, negative: rales, rhonchi, wheezing - Cardiovascular Rhythm: regular Heart Sounds: Present: S1 & S2 - Extremities Extremities: no ischemia, abnormal (Dressing in place) - Abdominal General gastrointestinal: soft, non-tender, non-distended, normal bowel sounds, other (Obese) - Integumentary Integumentary: Present: clear, warm - Psychiatric Psychiatric: appropriate mood/affect, cooperative - Neurologic Neurologic: moves all extremities HEART Score - HEART Score Troponin: Troponin T 0.050 ng/mL (0.00-0.029) H 08/06/21 20:19 Results - Labs CBC & Chem 7: 08/09/21 04:58 08/09/21 04:58 Labs: Laboratory Last Values WBC 8.1 K/mm3 (4.5-11.0) 08/09/21 04:58 RBC 3.46 M/mm3 (3.65-5.03) L 08/09/21 04:58 Hgb 9.9 gm/dl (10.1-14.3) L 08/09/21 04:58 Hct 30.8 % (30.3-42.9) 08/09/21 04:58 MCV 89 fl (79-97) 08/09/21 04:58 MCH 28 pg (28-32) 08/09/21 04:58 MCHC 32 % (30-34) 08/09/21 04:58 RDW 17.9 % (13.2-15.2) H 08/09/21 04:58 Plt Count 397 K/mm3 (140-440) 08/09/21 04:58 Lymph % (Auto) 25.3 % (13.4-35.0) 08/09/21 04:58 Wirt % (Auto) 9.4 % (0.0-7.3) H 08/09/21 04:58 Eos % (Auto) 7.7 % (0.0-4.3) H 08/09/21 04:58 Baso % (Auto) 1.0 % (0.0-1.8) 08/09/21 04:58 Lymph # (Auto) 2.0 K/mm3 (1.2-5.4) 08/09/21 04:58 Wirt # (Auto) 0.8 K/mm3 (0.0-0.8) 08/09/21 04:58 Eos # (Auto) 0.6 K/mm3 (0.0-0.4) H 08/09/21 04:58 Baso # (Auto) 0.1 K/mm3 (0.0-0.1) 08/09/21 04:58 Add Manual Diff Complete 08/07/21 04:25 Total Counted 100 08/07/21 04:25 Seg Neutrophils % 56.6 % (40.0-70.0) 08/09/21 04:58 Seg Neuts % (Manual) 59.0 % (40.0-70.0) 08/07/21 04:25 Band Neutrophils % 3.0 % 08/07/21 04:25 Lymphocytes % (Manual) 25.0 % (13.4-35.0) 08/07/21 04:25 Reactive Lymphs % (Man) 0 % 08/07/21 04:25 Monocytes % (Manual) 6.0 % (0.0-7.3) 08/07/21 04:25 Eosinophils % (Manual) 7.0 % (0.0-4.3) H 08/07/21 04:25 Basophils % (Manual) 0 % (0.0-1.8) 08/07/21 04:25 Metamyelocytes % 0 % 08/07/21 04:25 Myelocytes % 0 % 08/07/21 04:25 Promyelocytes % 0 % 08/07/21 04:25 Blast Cells % 0 % 08/07/21 04:25 Nucleated RBC % Not Reportable 08/07/21 04:25 Seg Neutrophils # 4.6 K/mm3 (1.8-7.7) 08/09/21 04:58 Seg Neutrophils # Man 6.5 K/mm3 (1.8-7.7) 08/07/21 04:25 Band Neutrophils # 0.3 K/mm3 08/07/21 04:25 Lymphocytes # (Manual) 2.8 K/mm3 (1.2-5.4) 08/07/21 04:25 Abs React Lymphs (Man) 0.0 K/mm3 08/07/21 04:25 Monocytes # (Manual) 0.7 K/mm3 (0.0-0.8) 08/07/21 04:25 Eosinophils # (Manual) 0.8 K/mm3 (0.0-0.4) H 08/07/21 04:25 Basophils # (Manual) 0.0 K/mm3 (0.0-0.1) 08/07/21 04:25 Metamyelocytes # 0.0 K/mm3 08/07/21 04:25 Myelocytes # 0.0 K/mm3 08/07/21 04:25 Promyelocytes # 0.0 K/mm3 08/07/21 04:25 Blast Cells # 0.0 K/mm3 08/07/21 04:25 WBC Morphology Not Reportable 08/07/21 04:25 Hypersegmented Neuts Not Reportable 08/07/21 04:25 Hyposegmented Neuts Not Reportable 08/07/21 04:25 Hypogranular Neuts Not Reportable 08/07/21 04:25 Smudge Cells Not Reportable 08/07/21 04:25 Toxic Granulation Not Reportable 08/07/21 04:25 Toxic Vacuolation Not Reportable 08/07/21 04:25 Dohle Bodies Not Reportable 08/07/21 04:25 Pelger-Huet Anomaly Not Reportable 08/07/21 04:25 Aakash Rods Not Reportable 08/07/21 04:25 Platelet Estimate Consistent w auto 08/07/21 04:25 Clumped Platelets Not Reportable 08/07/21 04:25 Plt Clumps, EDTA Not Reportable 08/07/21 04:25 Large Platelets Not Reportable 08/07/21 04:25 Giant Platelets Not Reportable 08/07/21 04:25 Platelet Satelliting Not Reportable 08/07/21 04:25 Plt Morphology Comment Not Reportable 08/07/21 04:25 RBC Morphology Not Reportable 08/07/21 04:25 Dimorphic RBCs Not Reportable 08/07/21 04:25 Polychromasia Not Reportable 08/07/21 04:25 Hypochromasia 1+ 08/07/21 04:25 Poikilocytosis Not Reportable 08/07/21 04:25 Anisocytosis Not Reportable 08/07/21 04:25 Microcytosis Few 08/07/21 04:25 Macrocytosis Not Reportable 08/07/21 04:25 Spherocytes Not Reportable 08/07/21 04:25 Pappenheimer Bodies Not Reportable 08/07/21 04:25 Sickle Cells Not Reportable 08/07/21 04:25 Target Cells Not Reportable 08/07/21 04:25 Tear Drop Cells Not Reportable 08/07/21 04:25 Ovalocytes Not Reportable 08/07/21 04:25 Helmet Cells Not Reportable 08/07/21 04:25 Krause-[place] Bodies Not Reportable 08/07/21 04:25 [place] Rings Not Reportable 08/07/21 04:25 [place] Cells Not Reportable 08/07/21 04:25 Bite Cells Not Reportable 08/07/21 04:25 Crenated Cell Not Reportable 08/07/21 04:25 Elliptocytes Not Reportable 08/07/21 04:25 Acanthocytes (Spur) Not Reportable 08/07/21 04:25 Rouleaux Not Reportable 08/07/21 04:25 Hemoglobin C Crystals Not Reportable 08/07/21 04:25 Schistocytes Not Reportable 08/07/21 04:25 Malaria parasites Not Reportable 08/07/21 04:25 ESR 58 mm/Hr (0-20) 08/06/21 20:19 Joseph Bodies Not Reportable 08/07/21 04:25 Hem Pathologist Commnt No 08/07/21 04:25 PT 13.6 Sec. (12.2-14.9) 08/06/21 20:19 INR 0.94 (0.87-1.13) 08/06/21 20:19 APTT 28.6 Sec. (24.2-36.6) 08/06/21 20:19 Sodium 140 mmol/L (137-145) 08/09/21 04:58 Potassium 4.1 mmol/L (3.6-5.0) 08/09/21 04:58 Chloride 103.2 mmol/L (98-107) 08/09/21 04:58 Carbon Dioxide 26 mmol/L (22-30) 08/09/21 04:58 Anion Gap 15 mmol/L 08/09/21 04:58 BUN 14 mg/dL (7-17) 08/09/21 04:58 Creatinine 0.9 mg/dL (0.6-1.2) 08/09/21 04:58 Estimated GFR > 60 ml/min 08/09/21 04:58 BUN/Creatinine Ratio 16 % 08/09/21 04:58 Glucose 155 mg/dL (65-100) H 08/09/21 04:58 POC Glucose 186 mg/dL (70-105) H 08/09/21 16:30 Hemoglobin A1c 6.3 % (4-6) H 08/08/21 04:45 Lactic Acid 1.40 mmol/L (0.7-2.0) 08/07/21 00:10 Calcium 9.4 mg/dL (8.4-10.2) 08/09/21 04:58 Total Bilirubin 0.30 mg/dL (0.1-1.2) 08/06/21 20:19 AST 25 units/L (5-40) 08/06/21 20:19 ALT 23 units/L (7-56) 08/06/21 20:19 Alkaline Phosphatase 53 units/L (35-129) 08/06/21 20:19 Troponin T 0.050 ng/mL (0.00-0.029) H 08/06/21 20:19 C-Reactive Protein 0.30 mg/dL (0.00-1.30) 08/06/21 20:19 NT-Pro-B Natriuret Pep 232.0 pg/mL (0-900) 08/06/21 20:19 Total Protein 6.4 g/dL (6.3-8.2) 08/06/21 20:19 Albumin 3.7 g/dL (3.9-5) L 08/06/21 20:19 Albumin/Globulin Ratio 1.4 % 08/06/21 20:19 Triglycerides 123 mg/dL (2-149) 08/06/21 20:19 Cholesterol 151 mg/dL (50-199) 08/06/21 20:19 LDL Cholesterol Direct 78 mg/dL (50-130) 08/06/21 20:19 HDL Cholesterol 47 mg/dL (40-59) 08/06/21 20:19 Cholesterol/HDL Ratio 3.21 % 08/06/21 20:19 HCG, Qual Negative (Negative) 08/06/21 20:19 Urine Color Yellow (Yellow) 08/06/21 Unknown Urine Turbidity Slightly-cloudy (Clear) 08/06/21 Unknown Urine pH 5.0 (5.0-7.0) 08/06/21 Unknown Ur Specific [place] 1.021 (1.003-1.030) 08/06/21 Unknown Urine Protein <15 mg/dl mg/dL (Negative) 08/06/21 Unknown Urine Glucose (UA) >=500 mg/dL (Negative) 08/06/21 Unknown Urine Ketones Neg mg/dL (Negative) 08/06/21 Unknown Urine Blood Neg (Negative) 08/06/21 Unknown Urine Nitrite Neg (Negative) 08/06/21 Unknown Urine Bilirubin Neg (Negative) 08/06/21 Unknown Urine Urobilinogen < 2.0 mg/dL (<2.0) 08/06/21 Unknown Ur Leukocyte Esterase Neg (Negative) 08/06/21 Unknown Urine WBC (Auto) 2.0 /HPF (0.0-6.0) 08/06/21 Unknown Urine RBC (Auto) 3.0 /HPF (0.0-6.0) 08/06/21 Unknown U Epithel Cells (Auto) 1.0 /HPF (0-13.0) 08/06/21 Unknown Urine Bacteria (Auto) 1+ /HPF (Negative) 08/06/21 Unknown Uric Acid Crystals Few 08/06/21 Unknown Vancomycin Trough 35.7 ug/mL (5.0-20.0) H 08/08/21 09:29 Random Vancomycin 16.1 ug/mL (0-40.0) 08/09/21 04:58 Microbiology: Microbiology 08/06/21 Unknown Urine,Clean Catch Urine Culture - Final 08/06/21 20:19 Peripheral/Venous Blood Culture - Preliminary NO GROWTH AFTER 48 HOURS 08/06/21 20:30 Peripheral/Venous Blood Culture - Preliminary NO GROWTH AFTER 48 HOURS Parks/IV: Voiding Method External Female Catheter Active Medications - Current Medications Current Medications: Generic Name Dose Route Start Last Admin Trade Name Freq PRN Reason Stop Dose Admin Acetaminophen 650 mg 08/06/21 23:25 Acetaminophen 325 Mg Tab PO Q4H PRN Pain MILD(1-3)/Fever >100.5/MACKEY Dextrose 0 ml 08/06/21 23:36 Dextrose 10% *Hypoglycemia IV DIRECT PRN Hypoglycemia Protocol Heparin Sodium (Porcine) 5,000 unit 08/07/21 06:00 08/09/21 14:11 Heparin 5,000 Unit/1 Ml Vial SUB-Q 5,000 unit Q8HR JAJA Administration Sodium Chloride 1,000 mls @ 125 mls/hr 08/06/21 23:30 Nacl 0.9% 1000 Ml IV DIRECT JAJA Ampicillin Sodium/Sulbactam Sodium 3 gm in 100 mls @ 200 mls/hr 08/08/21 10:00 08/09/21 04:26 Unasyn/Ns 3 Gm/100 Ml IV 200 mls/hr Q6H JAJA Administration Protocol Vancomycin HCl 2,000 mg/ 540 mls @ 250 mls/hr 08/09/21 12:00 08/09/21 14:11 Sodium Chloride IV 250 mls/hr Q24H JAJA Administration Insulin Human Lispro 0 unit 08/07/21 07:30 08/09/21 14:10 Insulin Lispro 100 Unit/Ml SUB-Q 4 unit ACHS JAJA Administration Protocol Magnesium Hydroxide 30 ml 08/06/21 23:25 Magnesium Hydroxide (Mom) Oral Liqd Udc PO Q4H PRN Constipation Morphine Sulfate 2 mg 08/06/21 23:25 Morphine 2 Mg/1 Ml Inj IV Q4H PRN Pain, Moderate (4-6) Morphine Sulfate 4 mg 08/06/21 23:25 Morphine 4 Mg/1 Ml Inj IV Q4H PRN Pain , Severe (7-10) Ondansetron HCl 4 mg 08/06/21 23:25 Ondansetron 4 Mg/2 Ml Inj IV Q8H PRN Nausea And Vomiting Sodium Chloride 10 ml 08/07/21 10:00 08/09/21 14:10 Sodium Chloride 0.9% 10 Ml Flush Syringe IV 10 ml BID JAJA Administration Sodium Chloride 10 ml 08/06/21 23:25 Sodium Chloride 0.9% 10 Ml Flush Syringe IV PRN PRN LINE FLUSH Nutrition/Malnutrition Assess - Dietary Evaluation Nutrition/Malnutrition Findings: Nutrition Notes Start: 08/08/21 13:51 Freq: Status: Active Protocol: Document 08/08/21 13:51 RS (Rec: 08/08/21 14:14 RS [id number]) Nutrition Notes Need for Assessment 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 from: furnace 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 Initial or Follow up Assessment Current Diagnosis CKD(stage I-IV),Diabetes, Hypertension,Respiratory Failure Other Pertinent Diagnosis Bilat heel ulcers, osteomyelitis Current Diet Cardiac Consistent CHO diet Labs/Tests Nutrition labs pending 08/08 POC Glu trending above range Pertinent Medications Humalog Height 5 ft 2 in Weight 135.2 kg Usual Body Weight 147.9 kg [place] Body Weight (kg) 50.00 BMI 54.5 Intake Prior to Admission Excellent Weight change and time frame 12.7kg wt loss from June 2021 (9% in 2 months) Weight Status Morbidly Obese Subjective/Other Information RN consult for skin risk, MST, and early DM onset. Pt reports being dx with T2DM 8 years ago. Pt has recieved DM diet education and takes humalog as home medication. Gerry score 15. Pt has poor healing ulcer on left heel. Pt reports good appetite and consumes 75% of meals. Per diet recall, pt not consuming chicken d/t diet preferences. Pt also reports disliking oranges and tomatoes. RD to update diet order with modifications. RD reccomended Nepro to pt d/t high protein/ low potassium content but pt requested Glucerna ONS qd instead. Percent of energy/protein needs met: 96%/52% Burn Absent Trauma Absent GI Symptoms None Usual Diet at Home Renal Consistent CHO diet Skin Integrity/Comment Gerry Score 15 Current % PO Good (75-100%) Minimum of two criteria No #1 Nutrition Diagnosis Increased nutrient needs ( specify in comment below) Comments: protein Etiology bilat heel ulcers As Evidenced by Signs and Symptoms poor healing ulcer on LLE and pt only meeting 52% of protein needs Is patient on ventilator? No Is Patient Ambulatory and/or Out of Bed Yes REE-([place]-St. Jeor-ambulatory/OOB) [ 2457.325 [id number]] Additional Notes Kcal needs: 1550kcal/day (22- 25kcal/kg IBW/day+300kcal for wound healing) Pro needs: 125g/day (2.5g/kg IBW/day for poor wound healing ) Fluid needs: 1mL/kcal or per MD Nutrition Intervention Change Diet Order: Continue Cardiac Consistent CHO diet Add Supplement/Snack (indicate name/kcal Glucerna vanilla BID /protein ) Provides kCal: 440 Provides Protein (gm) 20 Goal #1 Pt will meet at least 75% of kcal/protein needs via PO intake and ONS Goal #2 Wt maintence/wt loss Anticipated Discharge Needs: Cardiac consistent CHO diet Follow-Up By: 08/11/21 Additional Comments F/U for ONS tolerance, PO intake, if diet modifications are consistent with pt's request.
--- NOTE | 2021-08-09 18:34 | Event Note ---
Date: 08/09/21 MRI left foot no MR evidence of osteomyelitis Superficial soft tissue ulcer at the posterior heel with subcutaneous edema but no connection to the bone next Achilles tendon axis next [place] neuropathy. As patient does not have osteomyelitis, surgery cleared and signed off We will continue IV antibiotics Vanco and Unasyn Continue wound care, elevate the limb Follow cultures, consult ID for the choice of antibiotics and the duration of treatment. We will also check PT eval prior to discharge. Plan of care discussed with the patient, her nurse and the case management
[2021-08-09] MEDS: SODIUM CHLORIDE 0.9% 1000 ML 1,000 ML IV SCH (22:20)
[2021-08-10] MEDS ORDERED: hydrALAZINE 20 MG/1 ML INJ IV PRN (00:24)
[2021-08-10] MEDS: AMPICILLIN/SULBACTA 3GM/100ML 3 GM/100 ML BAG IV SCH ×5 (00:57→22:30)
[2021-08-10] MEDS: HEPARIN 5,000 UNIT/1 ML VIAL SUB-Q SCH ×3 (05:18→22:22)
[2021-08-10] MEDS: INSULIN LISPRO 100 UNIT/ML SUB-Q SCH ×4 (09:55→23:18)
[2021-08-10] MEDS ORDERED: LORazepam 2 MG/ML VIAL IV NR (12:15)
[2021-08-10] MEDS: VANCOMYCIN 2,000 MG in SODIUM CHLORIDE 0.9% 500 ML 500 ML IV SCH (12:34)
--- NOTE | 2021-08-10 15:15 | Progress Note ---
Assessment and Plan Assessment and plan: -- Osteomyelitis of left foot ruled out Current Visit: Yes Status: Acute MRI of the foot negative for osteomyelitis Patient's wound is clean , surgery feels no need for antibiotics Continue supportive care -- Chronic respiratory failure Current Visit: Yes Status: Acute Plan to address problem: Patient had a recent coving 19 pneumonia with respiratory failure. Currently on supplemental oxygen. Patient is saturating well on room air -- Elevated troponin Current Visit: Yes Status: Acute Possibly troponin leak. Patient denies any chest pain. -- Hyperglycemia Current Visit: Yes Status: Acute Insulin adjusted -- Morbid obesity with BMI of 50.0-59.9, adult Current Visit: Yes Status: Acute Dietary consult requested. Lifestyle modification encouraged. -- DVT prophylaxis Current Visit: Yes Status: Acute Patient placed on subcutaneous heparin. -- Full code status Current Visit: Yes Status: Acute Patient is full code. Brief history and hospital course: 55-year-old female resident of a [facility] with significant past medical history of hypertension, diabetes mellitus, hypothyroidism, chronic kidney disease, history of COVID-19 pneumonia with subsequent respiratory failure on 2 L of supplemental oxygen brought in by EMS today for left heel ulcer with concerns for possible osteomyelitis. Patient is known to have bilateral heel ulcers and left heel ulcer does not seem to be healing well and subsequent x-rays done was concerning for possible osteomyelitis. Patient denies any fever or chills, no chest pain or shortness of breath, no nausea vomiting and no abdominal pain. Blood glucose has not been quite controlled lately with numbers ranging in the 200s to 300s. Work-up in the emergency room today, significant findings were that of blood glucose of 326, hemoglobin of 10 and hematocrit of 31.1. Ankle and foot x-rays reveals no radiographic evidence of osteomyelitis. Chest x-ray showed no acute findings. Patient has been commenced on empiric IV antibiotics for possible osteomyelitis. August 07, 2021 Continue IV antibiotics MRI pending August 08, 2021 Patient is alert and oriented Lying in bed comfortably and looking at her phone Continue IV antibiotics MRI of the left foot pending 08/09/21; follow MRI left lower extremity to rule out osteomyelitis 08/10/2021; MRI negative for osteomyelitis, no evidence of infection No need for antibiotics per surgery, Follow-up with wound care Stable for discharge today back to rehab Case management assisting with discharge planning Discharge back to subacute rehab History Interval history: I have seen and examined the patient at the bedside No new complaints, signs noted Hospitalist Physical - Constitutional Vitals: Temp Pulse Resp BP Pulse Ox 97.9 F 71 18 162/61 96 08/10/21 13:18 08/10/21 13:18 08/10/21 13:18 08/10/21 13:18 08/10/21 13:18 General appearance: Present: no acute distress, well-nourished, obese (Morbidly obese) - EENT Eyes: Present: PERRL, EOM intact - Neck Neck: Present: supple, normal ROM - Respiratory Respiratory effort: normal Respiratory: bilateral: diminished, negative: rales, rhonchi, wheezing - Cardiovascular Rhythm: regular Heart Sounds: Present: S1 & S2 - Extremities Extremities: no ischemia, No edema - Abdominal General gastrointestinal: soft, non-tender, non-distended, normal bowel sounds - Integumentary Integumentary: Present: clear, warm - Psychiatric Psychiatric: appropriate mood/affect, cooperative - Neurologic Neurologic: moves all extremities HEART Score - HEART Score Troponin: Troponin T 0.050 ng/mL (0.00-0.029) H 08/06/21 20:19 Results - Labs CBC & Chem 7: 08/09/21 04:58 08/09/21 04:58 Labs: Laboratory Last Values WBC 8.1 K/mm3 (4.5-11.0) 08/09/21 04:58 RBC 3.46 M/mm3 (3.65-5.03) L 08/09/21 04:58 Hgb 9.9 gm/dl (10.1-14.3) L 08/09/21 04:58 Hct 30.8 % (30.3-42.9) 08/09/21 04:58 MCV 89 fl (79-97) 08/09/21 04:58 MCH 28 pg (28-32) 08/09/21 04:58 MCHC 32 % (30-34) 08/09/21 04:58 RDW 17.9 % (13.2-15.2) H 08/09/21 04:58 Plt Count 397 K/mm3 (140-440) 08/09/21 04:58 Lymph % (Auto) 25.3 % (13.4-35.0) 08/09/21 04:58 [place] % (Auto) 9.4 % (0.0-7.3) H 08/09/21 04:58 Eos % (Auto) 7.7 % (0.0-4.3) H 08/09/21 04:58 Baso % (Auto) 1.0 % (0.0-1.8) 08/09/21 04:58 Lymph # (Auto) 2.0 K/mm3 (1.2-5.4) 08/09/21 04:58 [place] # (Auto) 0.8 K/mm3 (0.0-0.8) 08/09/21 04:58 Eos # (Auto) 0.6 K/mm3 (0.0-0.4) H 08/09/21 04:58 Baso # (Auto) 0.1 K/mm3 (0.0-0.1) 08/09/21 04:58 Add Manual Diff Complete 08/07/21 04:25 Total Counted 100 08/07/21 04:25 Seg Neutrophils % 56.6 % (40.0-70.0) 08/09/21 04:58 Seg Neuts % (Manual) 59.0 % (40.0-70.0) 08/07/21 04:25 Band Neutrophils % 3.0 % 08/07/21 04:25 Lymphocytes % (Manual) 25.0 % (13.4-35.0) 08/07/21 04:25 Reactive Lymphs % (Man) 0 % 08/07/21 04:25 Monocytes % (Manual) 6.0 % (0.0-7.3) 08/07/21 04:25 Eosinophils % (Manual) 7.0 % (0.0-4.3) H 08/07/21 04:25 Basophils % (Manual) 0 % (0.0-1.8) 08/07/21 04:25 Metamyelocytes % 0 % 08/07/21 04:25 Myelocytes % 0 % 08/07/21 04:25 Promyelocytes % 0 % 08/07/21 04:25 Blast Cells % 0 % 08/07/21 04:25 Nucleated RBC % Not Reportable 08/07/21 04:25 Seg Neutrophils # 4.6 K/mm3 (1.8-7.7) 08/09/21 04:58 Seg Neutrophils # Man 6.5 K/mm3 (1.8-7.7) 08/07/21 04:25 Band Neutrophils # 0.3 K/mm3 08/07/21 04:25 Lymphocytes # (Manual) 2.8 K/mm3 (1.2-5.4) 08/07/21 04:25 Abs React Lymphs (Man) 0.0 K/mm3 08/07/21 04:25 Monocytes # (Manual) 0.7 K/mm3 (0.0-0.8) 08/07/21 04:25 Eosinophils # (Manual) 0.8 K/mm3 (0.0-0.4) H 08/07/21 04:25 Basophils # (Manual) 0.0 K/mm3 (0.0-0.1) 08/07/21 04:25 Metamyelocytes # 0.0 K/mm3 08/07/21 04:25 Myelocytes # 0.0 K/mm3 08/07/21 04:25 Promyelocytes # 0.0 K/mm3 08/07/21 04:25 Blast Cells # 0.0 K/mm3 08/07/21 04:25 WBC Morphology Not Reportable 08/07/21 04:25 Hypersegmented Neuts Not Reportable 08/07/21 04:25 Hyposegmented Neuts Not Reportable 08/07/21 04:25 Hypogranular Neuts Not Reportable 08/07/21 04:25 Smudge Cells Not Reportable 08/07/21 04:25 Toxic Granulation Not Reportable 08/07/21 04:25 Toxic Vacuolation Not Reportable 08/07/21 04:25 Dohle Bodies Not Reportable 08/07/21 04:25 Pelger-Huet Anomaly Not Reportable 08/07/21 04:25 Aakash Rods Not Reportable 08/07/21 04:25 Platelet Estimate Consistent w auto 08/07/21 04:25 Clumped Platelets Not Reportable 08/07/21 04:25 Plt Clumps, EDTA Not Reportable 08/07/21 04:25 Large Platelets Not Reportable 08/07/21 04:25 Giant Platelets Not Reportable 08/07/21 04:25 Platelet Satelliting Not Reportable 08/07/21 04:25 Plt Morphology Comment Not Reportable 08/07/21 04:25 RBC Morphology Not Reportable 08/07/21 04:25 Dimorphic RBCs Not Reportable 08/07/21 04:25 Polychromasia Not Reportable 08/07/21 04:25 Hypochromasia 1+ 08/07/21 04:25 Poikilocytosis Not Reportable 08/07/21 04:25 Anisocytosis Not Reportable 08/07/21 04:25 Microcytosis Few 08/07/21 04:25 Macrocytosis Not Reportable 08/07/21 04:25 Spherocytes Not Reportable 08/07/21 04:25 Pappenheimer Bodies Not Reportable 08/07/21 04:25 Sickle Cells Not Reportable 08/07/21 04:25 Target Cells Not Reportable 08/07/21 04:25 Tear Drop Cells Not Reportable 08/07/21 04:25 Ovalocytes Not Reportable 08/07/21 04:25 Helmet Cells Not Reportable 08/07/21 04:25 [place] Bodies Not Reportable 08/07/21 04:25 [place] Rings Not Reportable 08/07/21 04:25 Raquel Cells Not Reportable 08/07/21 04:25 Bite Cells Not Reportable 08/07/21 04:25 Crenated Cell Not Reportable 08/07/21 04:25 Elliptocytes Not Reportable 08/07/21 04:25 Acanthocytes (Spur) Not Reportable 08/07/21 04:25 Rouleaux Not Reportable 08/07/21 04:25 Hemoglobin C Crystals Not Reportable 08/07/21 04:25 Schistocytes Not Reportable 08/07/21 04:25 Malaria parasites Not Reportable 08/07/21 04:25 ESR 58 mm/Hr (0-20) 08/06/21 20:19 Joseph Bodies Not Reportable 08/07/21 04:25 Hem Pathologist Commnt No 08/07/21 04:25 PT 13.6 Sec. (12.2-14.9) 08/06/21 20:19 INR 0.94 (0.87-1.13) 08/06/21 20:19 APTT 28.6 Sec. (24.2-36.6) 08/06/21 20:19 Sodium 140 mmol/L (137-145) 08/09/21 04:58 Potassium 4.1 mmol/L (3.6-5.0) 08/09/21 04:58 Chloride 103.2 mmol/L (98-107) 08/09/21 04:58 Carbon Dioxide 26 mmol/L (22-30) 08/09/21 04:58 Anion Gap 15 mmol/L 08/09/21 04:58 BUN 14 mg/dL (7-17) 08/09/21 04:58 Creatinine 0.9 mg/dL (0.6-1.2) 08/09/21 04:58 Estimated GFR > 60 ml/min 08/09/21 04:58 BUN/Creatinine Ratio 16 % 08/09/21 04:58 Glucose 155 mg/dL (65-100) H 08/09/21 04:58 POC Glucose 205 mg/dL (70-105) H 08/10/21 11:11 Hemoglobin A1c 6.3 % (4-6) H 08/08/21 04:45 Lactic Acid 1.40 mmol/L (0.7-2.0) 08/07/21 00:10 Calcium 9.4 mg/dL (8.4-10.2) 08/09/21 04:58 Total Bilirubin 0.30 mg/dL (0.1-1.2) 08/06/21 20:19 AST 25 units/L (5-40) 08/06/21 20:19 ALT 23 units/L (7-56) 08/06/21 20:19 Alkaline Phosphatase 53 units/L (35-129) 08/06/21 20:19 Troponin T 0.050 ng/mL (0.00-0.029) H 08/06/21 20:19 C-Reactive Protein 0.30 mg/dL (0.00-1.30) 08/06/21 20:19 NT-Pro-B Natriuret Pep 232.0 pg/mL (0-900) 08/06/21 20:19 Total Protein 6.4 g/dL (6.3-8.2) 08/06/21 20:19 Albumin 3.7 g/dL (3.9-5) L 08/06/21 20:19 Albumin/Globulin Ratio 1.4 % 08/06/21 20:19 Triglycerides 123 mg/dL (2-149) 08/06/21 20:19 Cholesterol 151 mg/dL (50-199) 08/06/21 20:19 LDL Cholesterol Direct 78 mg/dL (50-130) 08/06/21 20:19 HDL Cholesterol 47 mg/dL (40-59) 08/06/21 20:19 Cholesterol/HDL Ratio 3.21 % 08/06/21 20:19 HCG, Qual Negative (Negative) 08/06/21 20:19 Urine Color Yellow (Yellow) 08/06/21 Unknown Urine Turbidity Slightly-cloudy (Clear) 08/06/21 Unknown Urine pH 5.0 (5.0-7.0) 08/06/21 Unknown Ur Specific [place] 1.021 (1.003-1.030) 08/06/21 Unknown Urine Protein <15 mg/dl mg/dL (Negative) 08/06/21 Unknown Urine Glucose (UA) >=500 mg/dL (Negative) 08/06/21 Unknown Urine Ketones Neg mg/dL (Negative) 08/06/21 Unknown Urine Blood Neg (Negative) 08/06/21 Unknown Urine Nitrite Neg (Negative) 08/06/21 Unknown Urine Bilirubin Neg (Negative) 08/06/21 Unknown Urine Urobilinogen < 2.0 mg/dL (<2.0) 08/06/21 Unknown Ur Leukocyte Esterase Neg (Negative) 08/06/21 Unknown Urine WBC (Auto) 2.0 /HPF (0.0-6.0) 08/06/21 Unknown Urine RBC (Auto) 3.0 /HPF (0.0-6.0) 08/06/21 Unknown U Epithel Cells (Auto) 1.0 /HPF (0-13.0) 08/06/21 Unknown Urine Bacteria (Auto) 1+ /HPF (Negative) 08/06/21 Unknown Uric Acid Crystals Few 08/06/21 Unknown Vancomycin Trough 35.7 ug/mL (5.0-20.0) H 08/08/21 09:29 Random Vancomycin 16.1 ug/mL (0-40.0) 08/09/21 04:58 Microbiology: Microbiology 08/06/21 20:19 Peripheral/Venous Blood Culture - Preliminary NO GROWTH AFTER 72 HOURS 08/06/21 20:30 Peripheral/Venous Blood Culture - Preliminary NO GROWTH AFTER 72 HOURS Parks/IV: Voiding Method External Female Catheter Active Medications - Current Medications Current Medications: Generic Name Dose Route Start Last Admin Trade Name Freq PRN Reason Stop Dose Admin Acetaminophen 650 mg 08/06/21 23:25 Acetaminophen 325 Mg Tab PO Q4H PRN Pain MILD(1-3)/Fever >100.5/MACKEY Dextrose 0 ml 08/06/21 23:36 Dextrose 10% *Hypoglycemia IV DIRECT PRN Hypoglycemia Protocol Heparin Sodium (Porcine) 5,000 unit 08/07/21 06:00 08/10/21 14:00 Heparin 5,000 Unit/1 Ml Vial SUB-Q 5,000 unit Q8HR JAJA Administration Hydralazine HCl 10 mg 08/10/21 00:24 08/10/21 00:58 Hydralazine 20 Mg/1 Ml Inj IV 10 mg Q6H PRN Administration Blood Pressure Sodium Chloride 1,000 mls @ 125 mls/hr 08/06/21 23:30 08/09/21 22:20 Nacl 0.9% 1000 Ml IV 125 mls/hr DIRECT JAJA Administration Ampicillin Sodium/Sulbactam Sodium 3 gm in 100 mls @ 200 mls/hr 08/08/21 10:00 08/10/21 09:54 Unasyn/Ns 3 Gm/100 Ml IV 200 mls/hr Q6H JAJA Administration Protocol Vancomycin HCl 2,000 mg/ 540 mls @ 250 mls/hr 08/09/21 12:00 08/10/21 12:34 Sodium Chloride IV 250 mls/hr Q24H JAJA Administration Insulin Human Lispro 0 unit 08/07/21 07:30 08/10/21 12:34 Insulin Lispro 100 Unit/Ml SUB-Q 4 unit ACHS JAJA Administration Protocol Lorazepam 2 mg 08/10/21 12:15 Lorazepam 2 Mg/Ml Vial IV 08/10/21 23:59 WINDOW CASER NR Magnesium Hydroxide 30 ml 08/06/21 23:25 Magnesium Hydroxide (Mom) Oral Liqd Udc PO Q4H PRN Constipation Morphine Sulfate 2 mg 08/06/21 23:25 Morphine 2 Mg/1 Ml Inj IV Q4H PRN Pain, Moderate (4-6) Morphine Sulfate 4 mg 08/06/21 23:25 Morphine 4 Mg/1 Ml Inj IV Q4H PRN Pain , Severe (7-10) Ondansetron HCl 4 mg 08/06/21 23:25 Ondansetron 4 Mg/2 Ml Inj IV Q8H PRN Nausea And Vomiting Sodium Chloride 10 ml 02/05/22 10:00 08/10/21 09:55 Sodium Chloride 0.9% 10 Ml Flush Syringe IV 10 ml BID JAJA Administration Sodium Chloride 10 ml 08/06/21 23:25 Sodium Chloride 0.9% 10 Ml Flush Syringe IV PRN PRN LINE FLUSH Nutrition/Malnutrition Assess - Dietary Evaluation Nutrition/Malnutrition Findings: Nutrition Notes Start: 08/08/21 13:51 Freq: Status: Active Protocol: Document 08/08/21 13:51 RS (Rec: 08/08/21 14:14 RS [id number]) Nutrition Notes Need for Assessment generated from: roll picker Initial or Follow up Assessment Current Diagnosis CKD(stage I-IV),Diabetes, Hypertension,Respiratory Failure Other Pertinent Diagnosis Bilat heel ulcers, osteomyelitis Current Diet Cardiac Consistent CHO diet Labs/Tests Nutrition labs pending 08/08 POC Glu trending above range Pertinent Medications Humalog Height 5 ft 2 in Weight 135.2 kg Usual Body Weight 147.9 kg Jones Body Weight (kg) 50.00 BMI 54.5 Intake Prior to Admission Excellent Weight change and time frame 12.7kg wt loss from June 2021 (9% in 2 months) Weight Status Morbidly Obese Subjective/Other Information RN consult for skin risk, MST, and early DM onset. Pt reports being dx with T2DM 8 years ago. Pt has recieved DM diet education and takes humalog as home medication. Gerry score 15. Pt has poor healing ulcer on left heel. Pt reports good appetite and consumes 75% of meals. Per diet recall, pt not consuming chicken d/t diet preferences. Pt also reports disliking oranges and tomatoes. RD to update diet order with modifications. RD reccomended Nepro to pt d/t high protein/ low potassium content but pt requested Glucerna ONS qd instead. Percent of energy/protein needs met: 96%/52% Burn Absent Trauma Absent GI Symptoms None Usual Diet at Home Renal Consistent CHO diet Skin Integrity/Comment Gerry Score 15 Current % PO Good (75-100%) Minimum of two criteria No #1 Nutrition Diagnosis Increased nutrient needs ( specify in comment below) Comments: protein Etiology bilat heel ulcers As Evidenced by Signs and Symptoms poor healing ulcer on LLE and pt only meeting 52% of protein needs Is patient on ventilator? No Is Patient Ambulatory and/or Out of Bed Yes REE-([place]-St. Jeor-ambulatory/OOB) [ 2457.325 [id number]] Additional Notes Kcal needs: 1550kcal/day (22- 25kcal/kg IBW/day+300kcal for wound healing) Pro needs: 125g/day (2.5g/kg IBW/day for poor wound healing ) Fluid needs: 1mL/kcal or per MD Nutrition Intervention Change Diet Order: Continue Cardiac Consistent CHO diet Add Supplement/Snack (indicate name/kcal Glucerna vanilla BID /protein ) Provides kCal: 440 Provides Protein (gm) 20 Goal #1 Pt will meet at least 75% of kcal/protein needs via PO intake and ONS Goal #2 Wt maintence/wt loss Anticipated Discharge Needs: Cardiac consistent CHO diet Follow-Up By: 08/11/21 Additional Comments F/U for ONS tolerance, PO intake, if diet modifications are consistent with pt's request.
[2021-08-11] MEDS: SODIUM CHLORIDE 0.9% 1000 ML 1,000 ML IV SCH (02:53)
[2021-08-11] MEDS: AMPICILLIN/SULBACTA 3GM/100ML 3 GM/100 ML BAG IV SCH ×2 (03:51→09:56)
[2021-08-11] MEDS: HEPARIN 5,000 UNIT/1 ML VIAL SUB-Q SCH ×3 (06:34→21:46)
[2021-08-11] MEDS: INSULIN LISPRO 100 UNIT/ML SUB-Q SCH ×4 (08:21→21:46)
[2021-08-11] MEDS: VANCOMYCIN 2,000 MG in SODIUM CHLORIDE 0.9% 500 ML 500 ML IV SCH (13:58)
--- NOTE | 2021-08-11 14:00 | Progress Note ---
Assessment and Plan Assessment and plan: -- Osteomyelitis of left foot ruled out Current Visit: Yes Status: Acute MRI of the foot negative for osteomyelitis Patient's wound is clean , surgery feels no need for antibiotics Continue supportive care --Chronic leg/heel wounds Current Visit: Yes Status: Chronic Evaluated by surgeon,No antibiotics needed Patient already has wound care follow-up Advised to follow outpatient wound care per schedule Cleared by surgeon for discharge - Chronic respiratory failure Current Visit: Yes Status: Acute Plan to address problem: Patient had a recent coving 19 pneumonia with respiratory failure. Currently on supplemental oxygen. Patient is saturating well on room air -- Elevated troponin Current Visit: Yes Status: Acute Possibly troponin leak. Patient denies any chest pain. -- Hyperglycemia Current Visit: Yes Status: Acute Insulin adjusted -- Morbid obesity with BMI of 50.0-59.9, adult Current Visit: Yes Status: Acute Dietary consult requested. Lifestyle modification encouraged. -- DVT prophylaxis Current Visit: Yes Status: Acute Patient placed on subcutaneous heparin. -- Full code status Current Visit: Yes Status: Acute Patient is full code. PT evaluation and discharge needs DC planning per case management; patient cannot go back to rehab Possible home with home health when stable Brief history and hospital course: 55-year-old female resident of a [facility] with significant past medical history of hypertension, diabetes mellitus, hypothyroidism, chronic kidney disease, history of COVID-19 pneumonia with subsequent respiratory failure on 2 L of supplemental oxygen brought in by EMS today for left heel ulcer with concerns for possible osteomyelitis. Patient is known to have bilateral heel ulcers and left heel ulcer does not seem to be healing well and subsequent x-rays done was concerning for possible osteomyelitis. Patient denies any fever or chills, no chest pain or shortness of breath, no nausea vomiting and no abdominal pain. Blood glucose has not been quite controlled lately with numbers ranging in the 200s to 300s. Work-up in the emergency room today, significant findings were that of blood glucose of 326, hemoglobin of 10 and hematocrit of 31.1. Ankle and foot x-rays reveals no radiographic evidence of osteomyelitis. Chest x-ray showed no acute findings. Patient has been commenced on empiric IV antibiotics for possible osteomyelitis. August 07, 2021 Continue IV antibiotics MRI pending August 08, 2021 Patient is alert and oriented Lying in bed comfortably and looking at her phone Continue IV antibiotics MRI of the left foot pending 08/09/21; follow MRI left lower extremity to rule out osteomyelitis 08/10/2021; MRI negative for osteomyelitis, no evidence of infection No need for antibiotics per surgery, Follow-up with wound care Stable for discharge today back to rehab 08/11/21; follow-up PT evaluation recommendations Case management assisting with discharge planning Discharge back to subacute rehab History Interval history: I have seen and examined the patient at the bedside Patient's chart and medications reviewed No new complaints Vital signs noted Hospitalist Physical - Constitutional Vitals: Temp Pulse Resp BP Pulse Ox 97.9 F 71 18 162/61 96 08/10/21 13:18 08/10/21 13:18 08/11/21 01:00 08/10/21 13:18 08/11/21 13:26 General appearance: Present: no acute distress, well-nourished, obese (Morbidly obese) - EENT Eyes: Present: PERRL, EOM intact - Neck Neck: Present: supple, normal ROM - Respiratory Respiratory effort: normal Respiratory: bilateral: diminished, negative: rales, rhonchi, wheezing - Cardiovascular Rhythm: regular Heart Sounds: Present: S1 & S2 - Extremities Extremities: no ischemia, No edema - Abdominal General gastrointestinal: soft, non-tender, non-distended, normal bowel sounds - Integumentary Integumentary: Present: clear, warm - Psychiatric Psychiatric: appropriate mood/affect, cooperative - Neurologic Neurologic: moves all extremities HEART Score - HEART Score Troponin: Troponin T 0.050 ng/mL (0.00-0.029) H 08/06/21 20:19 Results - Labs CBC & Chem 7: 08/09/21 04:58 08/09/21 04:58 Labs: Laboratory Last Values WBC 8.1 K/mm3 (4.5-11.0) 08/09/21 04:58 RBC 3.46 M/mm3 (3.65-5.03) L 08/09/21 04:58 Hgb 9.9 gm/dl (10.1-14.3) L 08/09/21 04:58 Hct 30.8 % (30.3-42.9) 08/09/21 04:58 MCV 89 fl (79-97) 08/09/21 04:58 MCH 28 pg (28-32) 08/09/21 04:58 MCHC 32 % (30-34) 08/09/21 04:58 RDW 17.9 % (13.2-15.2) H 08/09/21 04:58 Plt Count 397 K/mm3 (140-440) 08/09/21 04:58 Lymph % (Auto) 25.3 % (13.4-35.0) 08/09/21 04:58 [place] % (Auto) 9.4 % (0.0-7.3) H 08/09/21 04:58 Eos % (Auto) 7.7 % (0.0-4.3) H 08/09/21 04:58 Baso % (Auto) 1.0 % (0.0-1.8) 08/09/21 04:58 Lymph # (Auto) 2.0 K/mm3 (1.2-5.4) 08/09/21 04:58 [place] # (Auto) 0.8 K/mm3 (0.0-0.8) 08/09/21 04:58 Eos # (Auto) 0.6 K/mm3 (0.0-0.4) H 08/09/21 04:58 Baso # (Auto) 0.1 K/mm3 (0.0-0.1) 08/09/21 04:58 Add Manual Diff Complete 08/07/21 04:25 Total Counted 100 08/07/21 04:25 Seg Neutrophils % 56.6 % (40.0-70.0) 08/09/21 04:58 Seg Neuts % (Manual) 59.0 % (40.0-70.0) 08/07/21 04:25 Band Neutrophils % 3.0 % 08/07/21 04:25 Lymphocytes % (Manual) 25.0 % (13.4-35.0) 08/07/21 04:25 Reactive Lymphs % (Man) 0 % 08/07/21 04:25 Monocytes % (Manual) 6.0 % (0.0-7.3) 08/07/21 04:25 Eosinophils % (Manual) 7.0 % (0.0-4.3) H 08/07/21 04:25 Basophils % (Manual) 0 % (0.0-1.8) 08/07/21 04:25 Metamyelocytes % 0 % 08/07/21 04:25 Myelocytes % 0 % 08/07/21 04:25 Promyelocytes % 0 % 08/07/21 04:25 Blast Cells % 0 % 08/07/21 04:25 Nucleated RBC % Not Reportable 08/07/21 04:25 Seg Neutrophils # 4.6 K/mm3 (1.8-7.7) 08/09/21 04:58 Seg Neutrophils # Man 6.5 K/mm3 (1.8-7.7) 08/07/21 04:25 Band Neutrophils # 0.3 K/mm3 08/07/21 04:25 Lymphocytes # (Manual) 2.8 K/mm3 (1.2-5.4) 08/07/21 04:25 Abs React Lymphs (Man) 0.0 K/mm3 08/07/21 04:25 Monocytes # (Manual) 0.7 K/mm3 (0.0-0.8) 08/07/21 04:25 Eosinophils # (Manual) 0.8 K/mm3 (0.0-0.4) H 08/07/21 04:25 Basophils # (Manual) 0.0 K/mm3 (0.0-0.1) 08/07/21 04:25 Metamyelocytes # 0.0 K/mm3 08/07/21 04:25 Myelocytes # 0.0 K/mm3 08/07/21 04:25 Promyelocytes # 0.0 K/mm3 08/07/21 04:25 Blast Cells # 0.0 K/mm3 08/07/21 04:25 WBC Morphology Not Reportable 08/07/21 04:25 Hypersegmented Neuts Not Reportable 08/07/21 04:25 Hyposegmented Neuts Not Reportable 08/07/21 04:25 Hypogranular Neuts Not Reportable 08/07/21 04:25 Smudge Cells Not Reportable 08/07/21 04:25 Toxic Granulation Not Reportable 08/07/21 04:25 Toxic Vacuolation Not Reportable 08/07/21 04:25 Dohle Bodies Not Reportable 08/07/21 04:25 Pelger-Huet Anomaly Not Reportable 08/07/21 04:25 Aakash Rods Not Reportable 08/07/21 04:25 Platelet Estimate Consistent w auto 08/07/21 04:25 Clumped Platelets Not Reportable 08/07/21 04:25 Plt Clumps, EDTA Not Reportable 08/07/21 04:25 Large Platelets Not Reportable 08/07/21 04:25 Giant Platelets Not Reportable 08/07/21 04:25 Platelet Satelliting Not Reportable 08/07/21 04:25 Plt Morphology Comment Not Reportable 08/07/21 04:25 RBC Morphology Not Reportable 08/07/21 04:25 Dimorphic RBCs Not Reportable 08/07/21 04:25 Polychromasia Not Reportable 08/07/21 04:25 Hypochromasia 1+ 08/07/21 04:25 Poikilocytosis Not Reportable 08/07/21 04:25 Anisocytosis Not Reportable 08/07/21 04:25 Microcytosis Few 08/07/21 04:25 Macrocytosis Not Reportable 08/07/21 04:25 Spherocytes Not Reportable 08/07/21 04:25 Pappenheimer Bodies Not Reportable 08/07/21 04:25 Sickle Cells Not Reportable 08/07/21 04:25 Target Cells Not Reportable 08/07/21 04:25 Tear Drop Cells Not Reportable 08/07/21 04:25 Ovalocytes Not Reportable 08/07/21 04:25 Helmet Cells Not Reportable 08/07/21 04:25 [place] Bodies Not Reportable 08/07/21 04:25 [place] Rings Not Reportable 08/07/21 04:25 [place] Cells Not Reportable 08/07/21 04:25 Bite Cells Not Reportable 08/07/21 04:25 Crenated Cell Not Reportable 08/07/21 04:25 Elliptocytes Not Reportable 08/07/21 04:25 Acanthocytes (Spur) Not Reportable 08/07/21 04:25 Rouleaux Not Reportable 08/07/21 04:25 Hemoglobin C Crystals Not Reportable 08/07/21 04:25 Schistocytes Not Reportable 08/07/21 04:25 Malaria parasites Not Reportable 08/07/21 04:25 ESR 58 mm/Hr (0-20) 08/06/21 20:19 Joseph Bodies Not Reportable 08/07/21 04:25 Hem Pathologist Commnt No 08/07/21 04:25 PT 13.6 Sec. (12.2-14.9) 08/06/21 20:19 INR 0.94 (0.87-1.13) 08/06/21 20:19 APTT 28.6 Sec. (24.2-36.6) 08/06/21 20:19 Sodium 140 mmol/L (137-145) 08/09/21 04:58 Potassium 4.1 mmol/L (3.6-5.0) 08/09/21 04:58 Chloride 103.2 mmol/L (98-107) 08/09/21 04:58 Carbon Dioxide 26 mmol/L (22-30) 08/09/21 04:58 Anion Gap 15 mmol/L 08/09/21 04:58 BUN 14 mg/dL (7-17) 08/09/21 04:58 Creatinine 0.9 mg/dL (0.6-1.2) 08/09/21 04:58 Estimated GFR > 60 ml/min 08/09/21 04:58 BUN/Creatinine Ratio 16 % 08/09/21 04:58 Glucose 155 mg/dL (65-100) H 08/09/21 04:58 POC Glucose 190 mg/dL (70-105) H 08/11/21 11:10 Hemoglobin A1c 6.3 % (4-6) H 08/08/21 04:45 Lactic Acid 1.40 mmol/L (0.7-2.0) 08/07/21 00:10 Calcium 9.4 mg/dL (8.4-10.2) 08/09/21 04:58 Total Bilirubin 0.30 mg/dL (0.1-1.2) 08/06/21 20:19 AST 25 units/L (5-40) 08/06/21 20:19 ALT 23 units/L (7-56) 08/06/21 20:19 Alkaline Phosphatase 53 units/L (35-129) 08/06/21 20:19 Troponin T 0.050 ng/mL (0.00-0.029) H 08/06/21 20:19 C-Reactive Protein 0.30 mg/dL (0.00-1.30) 08/06/21 20:19 NT-Pro-B Natriuret Pep 232.0 pg/mL (0-900) 08/06/21 20:19 Total Protein 6.4 g/dL (6.3-8.2) 08/06/21 20: Albumin 3.7 g/dL (3.9-5) L 08/06/21 20: Albumin/Globulin Ratio 1.4 % 08/06/21 20:19 Triglycerides 123 mg/dL (2-149) 08/06/21 20:19 Cholesterol 151 mg/dL (50-199) 08/06/21 20:19 LDL Cholesterol Direct 78 mg/dL (50-130) 08/06/21 20: HDL Cholesterol 47 mg/dL (40-59) 08/06/21 20: Cholesterol/HDL Ratio 3.21 % 08/06/21 20:19 HCG, Qual Negative (Negative) 08/06/21 20:19 Urine Color Yellow (Yellow) 08/06/21 Unknown Urine Turbidity Slightly-cloudy (Clear) 08/06/21 Unknown Urine pH 5.0 (5.0-7.0) 08/06/21 Unknown Ur Specific [place] 1.021 (1.003-1.030) 08/06/21 Unknown Urine Protein <15 mg/dl mg/dL (Negative) 08/06/21 Unknown Urine Glucose (UA) >=500 mg/dL (Negative) 08/06/21 Unknown Urine Ketones Neg mg/dL (Negative) 08/06/21 Unknown Urine Blood Neg (Negative) 08/06/21 Unknown Urine Nitrite Neg (Negative) 08/06/21 Unknown Urine Bilirubin Neg (Negative) 08/06/21 Unknown Urine Urobilinogen < 2.0 mg/dL (<2.0) 08/06/21 Unknown Ur Leukocyte Esterase Neg (Negative) 08/06/21 Unknown Urine WBC (Auto) 2.0 /HPF (0.0-6.0) 08/06/21 Unknown Urine RBC (Auto) 3.0 /HPF (0.0-6.0) 08/06/21 Unknown U Epithel Cells (Auto) 1.0 /HPF (0-13.0) 08/06/21 Unknown Urine Bacteria (Auto) 1+ /HPF (Negative) 08/06/21 Unknown Uric Acid Crystals Few 08/06/21 Unknown Vancomycin Trough 35.7 ug/mL (5.0-20.0) H 08/08/21 09:29 Random Vancomycin 16.1 ug/mL (0-40.0) 08/09/21 04:58 Microbiology: Microbiology 08/06/21 20:30 Peripheral/Venous Blood Culture - Preliminary NO GROWTH AFTER 4 DAYS 08/06/21 20:19 Peripheral/Venous Blood Culture - Preliminary NO GROWTH AFTER 4 DAYS Parks/IV: Voiding Method External Female Catheter Active Medications - Current Medications Current Medications: Generic Name Dose Route Start Last Admin Trade Name Freq PRN Reason Stop Dose Admin Acetaminophen 650 mg 08/06/21 23:25 Acetaminophen 325 Mg Tab PO Q4H PRN Pain MILD(1-3)/Fever >100.5/MACKEY Dextrose 0 ml 08/06/21 23:36 Dextrose 10% *Hypoglycemia IV DIRECT PRN Hypoglycemia Protocol Heparin Sodium (Porcine) 5,000 unit 08/07/21 06:00 08/11/21 13:56 Heparin 5,000 Unit/1 Ml Vial SUB-Q 5,000 unit Q8HR JAJA Administration Hydralazine HCl 10 mg 08/10/21 00:24 08/10/21 00:58 Hydralazine 20 Mg/1 Ml Inj IV 10 mg Q6H PRN Administration Blood Pressure Sodium Chloride 1,000 mls @ 125 mls/hr 08/06/21 23:30 08/11/21 02:53 Nacl 0.9% 1000 Ml IV 125 mls/hr DIRECT JAJA Administration Vancomycin HCl 2,000 mg/ 540 mls @ 250 mls/hr 08/09/21 12:00 08/11/21 13:58 Sodium Chloride IV Not Given Q24H JAJA Insulin Human Lispro 0 unit 08/07/21 07:30 08/11/21 13:52 Insulin Lispro 100 Unit/Ml SUB-Q 3 unit ACHS JAJA Administration Protocol Magnesium Hydroxide 30 ml 08/06/21 23:25 Magnesium Hydroxide (Mom) Oral Liqd Udc PO Q4H PRN Constipation Morphine Sulfate 2 mg 08/06/21 23:25 Morphine 2 Mg/1 Ml Inj IV Q4H PRN Pain, Moderate (4-6) Morphine Sulfate 4 mg 08/06/21 23:25 Morphine 4 Mg/1 Ml Inj IV Q4H PRN Pain , Severe (7-10) Ondansetron HCl 4 mg 08/06/21 23:25 Ondansetron 4 Mg/2 Ml Inj IV Q8H PRN Nausea And Vomiting Sodium Chloride 10 ml 08/07/21 10:00 02/09/22 09:56 Sodium Chloride 0.9% 10 Ml Flush Syringe IV 10 ml BID JAJA Administration Sodium Chloride 10 ml 08/06/21 23:25 Sodium Chloride 0.9% 10 Ml Flush Syringe IV PRN PRN LINE FLUSH Nutrition/Malnutrition Assess - Dietary Evaluation Nutrition/Malnutrition Findings: Nutrition Notes Start: 08/08/21 13:51 Freq: Status: Active Protocol: Document 08/08/21 13:51 RS (Rec: 08/08/21 14:14 RS [id number]) Nutrition Notes Need for Assessment generated from: parts facilitator Initial or Follow up Assessment Current Diagnosis CKD(stage I-IV),Diabetes, Hypertension,Respiratory Failure Other Pertinent Diagnosis Bilat heel ulcers, osteomyelitis Current Diet Cardiac Consistent CHO diet Labs/Tests Nutrition labs pending 08/08 POC Glu trending above range Pertinent Medications Humalog Height 5 ft 2 in Weight 135.2 kg Usual Body Weight 147.9 kg [place] Body Weight (kg) 50.00 BMI 54.5 Intake Prior to Admission Excellent Weight change and time frame 12.7kg wt loss from June 2021 (9% in 2 months) Weight Status Morbidly Obese Subjective/Other Information RN consult for skin risk, MST, and early DM onset. Pt reports being dx with T2DM 8 years ago. Pt has recieved DM diet education and takes humalog as home medication. Gerry score 15. Pt has poor healing ulcer on left heel. Pt reports good appetite and consumes 75% of meals. Per diet recall, pt not consuming chicken d/t diet preferences. Pt also reports disliking oranges and tomatoes. RD to update diet order with modifications. RD reccomended Nepro to pt d/t high protein/ low potassium content but pt requested Glucerna ONS qd instead. Percent of energy/protein needs met: 96%/52% Burn Absent Trauma Absent GI Symptoms None Usual Diet at Home Renal Consistent CHO diet Skin Integrity/Comment Gerry Score 15 Current % PO Good (75-100%) Minimum of two criteria No #1 Nutrition Diagnosis Increased nutrient needs ( specify in comment below) Comments: protein Etiology bilat heel ulcers As Evidenced by Signs and Symptoms poor healing ulcer on LLE and pt only meeting 52% of protein needs Is patient on ventilator? No Is Patient Ambulatory and/or Out of Bed Yes REE-([place] Jeor-ambulatory/OOB) [ 1739.325 [id number]] Additional Notes Kcal needs: 1550kcal/day (22- 25kcal/kg IBW/day+300kcal for wound healing) Pro needs: 125g/day (2.5g/kg IBW/day for poor wound healing ) Fluid needs: 1mL/kcal or per MD Nutrition Intervention Change Diet Order: Continue Cardiac Consistent CHO diet Add Supplement/Snack (indicate name/kcal Glucerna vanilla BID /protein ) Provides kCal: 440 Provides Protein (gm) 20 Goal #1 Pt will meet at least 75% of kcal/protein needs via PO intake and ONS Goal #2 Wt maintence/wt loss Anticipated Discharge Needs: Cardiac consistent CHO diet Follow-Up By: 08/11/21 Additional Comments F/U for ONS tolerance, PO intake, if diet modifications are consistent with pt's request.
[2021-08-11] MEDS: hydroCHLOROthiazide 25 MG TAB PO SCH (16:32)
[2021-08-11] MEDS: amLODIPine 5 MG TAB PO SCH (16:32)
[2021-08-12] MEDS: HEPARIN 5,000 UNIT/1 ML VIAL SUB-Q SCH ×2 (05:11→15:03)
[2021-08-12] MEDS ORDERED: LEVOTHYROXINE 150 MCG TAB PO SCH (06:00)
[2021-08-12] MEDS: INSULIN LISPRO 100 UNIT/ML SUB-Q SCH ×3 (08:10→19:00)
--- NOTE | 2021-08-12 09:49 | Discharge Summary ---
Providers - Providers Date of Admission: 08/06/21 23:26 Date of discharge: 08/12/21 Attending physician: STEFANO MARTINEZ 08/06/21 23:25 Consult to Physician [CONS] Routine Comment: Dr. Murdock spoke with Dr. Feliciano @ [phone] Consulting Provider: NATALIE FELICIANO Physician Instructions: Reason For Exam: Left foot Osteomyelitis 08/10/21 15:40 Physical Therapy Evaluation and Treat [CONS] Stat Comment: Eval and Treat/DC needs Reason For Exam: Physical Therapy Primary care physician: SUYAPA PANDA Hospitalization Condition: Stable Disposition: 01 HOME / SELF CARE / HOMELESS Final Discharge Diagnosis (Prints w/discharge instructions): Chronic leg and heel wounds. osteomyelitis ruled out. chronic respiratory failure. Nonspecific elevation troponin no cardiac symptoms. Hyperglycemia. Morbid obesity BMI 54.5. Possible obstructive sleep apnea Time spent for discharge: 35 min Core Measure Documentation - Palliative Care Palliative Care/ Comfort Measures: Not Applicable - Core Measures Any of the following diagnoses?: none Exam - Constitutional Vitals: Temp Pulse Resp BP Pulse Ox 97.6 F 70 16 171/62 96 08/12/21 04:07 08/12/21 04:07 08/12/21 04:07 08/12/21 04:07 08/12/21 04:07 Plan Activity: advance as tolerated, fall precautions Diet: diabetic Durable Medical Equipment Needed Upon Discharge: Oxygen (3 L nasal cannula oxygen) Additional Instructions: Fall precautions. If you have worsening symptoms contact MD or go to the nearest emergency room. Dietary modification, exercise as tolerated and weight reduction when you are medically stable. Outpatient wound care as needed Follow up with: SUYAPA PANDA MD [Primary Care Provider] - 3-5 Days Prescriptions: Levothyroxine [Synthroid] 150 mcg PO QAM #30
[2021-08-12] MEDS ORDERED: FENOFIBRATE 145 MG TAB PO SCH (10:00)
[2021-08-12] MEDS ORDERED: FERROUS SULFATE 325 MG TAB PO SCH (10:00)
[2021-08-12] MEDS: hydroCHLOROthiazide 25 MG TAB PO SCH (10:09)
[2021-08-12] MEDS: amLODIPine 5 MG TAB PO SCH (10:10)
[2021-08-12 18:48] VITALS: BP 147/56
== END 2021-08-12 21:00 | disposition home health service (06) | DRG 638 ==
LOC: ED 19:15 → 3A 23:26
PROVIDERS: ADMIT Internal Medicine Geriatric Medicine; ATTEND Internal Medicine
DX: E11.621 Type 2 diabetes mellitus with foot ulcer (principal); J96.10 Chronic respiratory failure, unspecified whether with hypoxia or hypercapnia; L97.429 Non-pressure chronic ulcer of left heel and midfoot with unspecified severity; Z68.43 Body mass index [BMI] 50.0-59.9, adult; E03.9 Hypothyroidism, unspecified; I12.9 Hypertensive chronic kidney disease with stage 1 through stage 4 chronic kidney disease, or unspecified chronic kidney disease; E11.22 Type 2 diabetes mellitus with diabetic chronic kidney disease; N18.9 Chronic kidney disease, unspecified; R77.8 Other specified abnormalities of plasma proteins; E66.01 Morbid (severe) obesity due to excess calories; E11.65 Type 2 diabetes mellitus with hyperglycemia; L89.90 Pressure ulcer of unspecified site, unspecified stage; Z83.3 Family history of diabetes mellitus
CPT/HCPCS: 36415; 71045; 73721; 80048; 80053; 80061; 80202; 81001; 82140; 82962; 83036; 83880; 84484; 84703; 85007; 85025; 85610; 85652; 85730; 86140; 87040; 87086; 93005; 93010; G0378; Q0162; Q9967; J0295; J0360; J1644; J1815; J2543; J3370; J7030; J7040